=== PATIENT | male | born 1945 | race Caucasian/White ===

== ENCOUNTER 2019-07-17 10:29 | Outpatient (CLI) | payer MEDICARE, BC, SELFPAY ==
--- NOTE | ~2019-07-17 | XR_ITS ---
EXAMINATION:XR_[id number] DATE: 07/17/2019 10:50 INDICATION: Neck pain TECHNIQUE: AP, lateral, and odontoid views of the cervical spine are provided. COMPARISON: None FINDINGS: Alignment is normal. The odontoid is intact. No fracture is identified. The vertebral body heights are maintained. There is advanced loss of intervertebral disc space height at C5-6 and C6-7 a nd mild loss of intervertebral disc space height throughout the remainder of the cervical spine. Smal l degenerative osteophytes project from the anterior endplates of multiple vertebral bodies. There is moderate multilevel facet and uncovertebral joint osteoarthritis. Prevertebral soft tissues are norm al. IMPRESSION: 1. Moderate to severe cervical spondylosis without acute findings. Reviewed, dictated and finalized at location A. IOGNOMIST
== END 2019-07-17 10:30 | disposition home or self-care (01) ==
LOC: ANHIMG 10:34
PROVIDERS: PCP Emergency Medicine; Visit Provider Emergency Medicine
DX: M54.2 Cervicalgia (principal); M47.812 Spondylosis without myelopathy or radiculopathy, cervical region
CPT/HCPCS: 72040

== ENCOUNTER 2019-07-30 11:54 | Inpatient (IN) | payer MEDICARE, BC, SELFPAY ==
[2019-07-30] VITALS (15 sets, daily range): BP systolic 142–210; BP diastolic 60–109; PULSE 77–112; RESP 13–24; TEMP 36.4–37.3; O2SAT 96–99; BMI 29.2
--- NOTE | ~2019-07-30 | MR_ITS ---
EXAMINATION: MR brain/brain stem wo/w con EXAM DATE: 07/31/2019 12:53 INDICATION: Dizziness. TECHNIQUE: Magnetic resonance imaging (MRI) of the brain/brain stem obtained without contrast. Sagit kera T1, axial diffusion, gradient echo (T2*), T1, T2, FLAIR sequences obtained. Patient was then inj ected with 16 cc intravenous Multihance contrast. Axial and coronal postcontrast T1 weighted sequence s obtained. There is no prior study for comparison. FINDINGS: Study is limited due to patient motion. There are no areas of restricted diffusion to sugge st acute infarction. There is no acute hemorrhage seen on the T2*, a hemosiderin sensitive sequence. No intraparenchymal brain mass lesion. There is mild periventricular and subcortical T2/FLAIR signa l hyperintensity, nonspecific but probably related to small vessel ischemic disease (microangiopathy) . There is mild prominence of the sulci and ventricles related to cerebral atrophy. There are no extra-axial collections. Flow voids are seen in the cerebral arteries on the T2-weighted sequences c onsistent with their expected patency. Patient has had bilateral ocular lens surgery. Soft tissue i s unremarkable. IMPRESSION: 1. No acute intracranial findings. 2. Chronic age related findings. Reviewed, dictated and finalized at location B. TURBINE MECHANIC
--- NOTE | ~2019-07-30 | CT_ITS ---
EXAMINATION: CT brain wo con DATE: 07/30/2019 12:09 INDICATION: Cerebrovascular accident. Confusion. TECHNIQUE: Computed tomography (CT) of the head was performed without intravenous contrast. The mA wa s adjusted according to patient size. Iterative reconstruction technique was employed. The dose-lengt h product was 605.33 mGy-cm. COMPARISON: Head CT 01/18/2007 FINDINGS: There are scattered areas of low attenuation in the cerebral white matter, which is within normal limits for the patient's age. There is no intracranial hemorrhage, acute infarction, or abnorm al intracranial mass lesion. The ventricles are normal in size. The paranasal sinuses are clear. Ther e are likely changes of ocular lens replacement surgeries. The mastoid air cells are normal. IMPRESSION: 1. Normal aging brain. I called this result to Dr. Nicholas on 07/30/2019 at 12:12 PM. Reviewed, dictated and finalized at location A. ING EQUIPMENT REPAIRER SUPERVISOR IMPRESSION: 1. Normal aging brain. I called this result to Dr. Nicholas on 07/30/2019 at 12:1 2 PM.
--- NOTE | ~2019-07-30 | US_ITS ---
EXAMINATION: US carotid duplex BI DATE: 07/31/2019 13:25 INDICATION: Cerebral vascular accident. TECHNIQUE: Grayscale, color Doppler, and pulsed Doppler images of the cervical carotid arteries were obtained. The degree of vessel stenosis is placed in one of the following categories: normal, <50%, 5 0-69%, >=70% but less than near-occlusion, near-occlusion, or total occlusion. Note that percent sten osis relative to normal distal artery lumen diameter is indirectly measured from velocity measurement s as described by Gianfranco, et al. Radiology 2003; 229:340-346. COMPARISON: None. FINDINGS: RIGHT: The right common carotid artery (CCA) peak systolic velocity (PSV) is 136 cm/s. The right internal ca rotid artery (ICA) PSV is 98 cm/s. The right ICA end-diastolic velocity (EDV) is 23 cm/s. The right I CA/CCA PSV ratio is 0.7. Grayscale and color Doppler images yield an estimate of <50% diameter reduct ion from plaque in the ICA. There is antegrade flow in the right vertebral artery. LEFT: The left CCA PSV is 113 cm/s. The left ICA PSV is 109 cm/s. The left ICA EDV is 22 cm/s. The left ICA /CCA PSV ratio is 1.0. Grayscale and color Doppler images yield an estimate of <50% diameter reductio n from plaque in the ICA. There is antegrade flow in the left vertebral artery. IMPRESSION: 1. <50% stenosis in the right internal carotid artery. 2. <50% stenosis in the left internal carotid artery. Reviewed, dictated and finalized at location A. ULAR EQUIPMENT REPAIRER
--- NOTE | ~2019-07-30 | XR_ITS ---
EXAMINATION: XR chest 1V portable EXAM DATE: 07/30/2019 12:26 INDICATION: Headache, confusion. Possible stroke. TECHNIQUE: Portable AP frontal chest x-ray was obtained. Comparison is made to prior examination from 03/28/2016. FINDINGS: The lungs are clear. There are no pleural effusions. Cardiac silhouette is prominent but magnified on this AP technique. There is no pneumothorax suspected. The bones and soft tissues are unremarkable. IMPRESSION: No acute cardiopulmonary findings. Reviewed, dictated and finalized at location B. IO PRODUCER
--- NOTE | 2019-07-30 12:13 | ECG_ITS ---
Measurements Intervals [place] Rate: 79 P: 54 MA: 169 QRS: 62 QRSD: 94 T: 28 QT: 358 QTc: 411 Interpretive Statements SINUS RHYTHM NORMAL ECG Electronically Signed On 07-30-2019 13:00:52 CHEMISTRY LABORATORY TECHNICIAN by Miller Levy D.O.
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
[2019-07-30 12:23] LABS: Basophils Absolute Auto 0.1 K/mm3 (0.0-0.1); Basophils Percent Auto 1.1 % (0.2-1.2); Eosinophils Absolute Auto 0.2 K/mm3 (0-0.3); Hematocrit 43.4 % (42.0-52.0); Hemoglobin 13.8 g/dL (14.0-18.0); Immature Granulocyte Absolute 0.03 K/mm3 (0.00-0.031); Immature Granulocyte Percent A 0.5 % (0-0.5); Lymphocytes Absolute Auto 0.98 K/mm3 (0.9-3.2); Lymphocytes Percent Auto 16.1 % (18.3-44.2); Mean Corpuscular HGB Conc 31.8 g/dl (32-36); Mean Corpuscular Hemoglobin 29.2 pg (26-34); Mean Corpuscular Volume 91.9 fl (80-100); Mean Platelet Volume 10.2 fl (7.4-10.4); Monocytes Absolute Auto 0.3 K/mm3 (0.1-0.6); Monocytes Percent Auto 5.4 % (2.6-8.5); Neutrophils Absolute Auto 4.5 K/mm3 (1.3-6.7); Neutrophils Percent Auto 73.9 % (45.5-73.1); Platelet Count Result 209 k/mm3 (150-375); Red Blood Count 4.72 M/mm3 (4.6-6.20); Red Cell Distribution Width 12.9 % (11.5-14.5); White Blood Count 6.1 K/mm3 (4.5-10.0)
[2019-07-30 12:34] LABS: Blood Urea Nitrogen 12 mg/dL (9-20); Calcium 9.7 mg/dL (8.4-10.2); Carbon Dioxide 27 mmol/L (22-30); Chloride 104 mmol/L (98-107); Estimated Glomerular Filt Rate 54; Glucose 92 mg/dL (75-110); Partial Thromboplastin Time 33.2 SECONDS (22.3-36.8); Potassium 3.9 mmol/L (3.4-5.0); Prothrombin Time 12.4 Seconds (11.1-14.7); Sodium 141 mmol/L (137-145)
[2019-07-30] MEDS: hydrALAZINE HCL 20 MG/ML VIAL 10 MG IV PUSH (12:43)
[2019-07-30 12:46] LABS: Troponin I 0.014 ng/mL (0.000-0.034)
[2019-07-30] MEDS: hydrALAZINE HCL 20 MG/ML VIAL (13:37)
[2019-07-30] MEDS: MECLIZINE HCL 25 MG TABLET PO (13:54)
[2019-07-30 14:10] LABS: Add Urine Microscopic? YES; Appearance Urine Cloudy (Clear); Bacteria Urine Trace /hpf; Bilirubin Urine Negative (Negative); Color Urine Yellow (Yellow); Glucose Urine UA Negative (Negative); Ketones Urine Negative (Negative); Leukocyte Esterase Ur Negative LEU/UL (Negative); Nitrate Urine Negative (Negative); Protein Urine Negative (Negative); Specific Grav Ur 1.013 (1.001-1.035); Urobilinogen Urine Negative mg/dL (<2.0); WBC Urine 16-20 /hpf
[2019-07-30 14:21] LABS: Blood Urine Negative (Negative)
--- NOTE | 2019-07-30 15:47 | ECG_ITS ---
Measurements Intervals [place] Rate: 107 P: 55 MI: 150 QRS: 76 QRSD: 106 T: 37 QT: 330 QTc: 440 Interpretive Statements SINUS TACHYCARDIA BORDERLINE ST-T WAVE ABNORMALITY- ANTEROLAT/INF LEADS BASELINE ARTIFACT- I, II, III, AVR, AVL, AVF ABNORMAL ECG Electronically Signed On 07-30-2019 16:05:06 PATTERN LEASE INSPECTOR by Miller Levy D.O.
--- NOTE | 2019-07-30 16:42 | ADMGEN ---
This patient, Jair Hardin, was admitted to IMU Room 231-01. Patient/family oriented to hospital policies and general routines including ID bracelet, bed and alarms, visiting hours, pain management, procedures, bathroom and other care routines, personal items, smoking policy, room service/diet, and visiting hours. Valuables list has been completed. Information on how to activate the Rapid Response Team has been discussed. Patient/Family are encouraged to report perceived risks to care and to ask questions if they do not understand what they are told or what they should do.
[2019-07-30] MEDS: ACETAMINOPHEN 325 MG TABLET 650 MG PO (20:11)
[2019-07-31] VITALS (14 sets, daily range): BP systolic 117–167; BP diastolic 59–90; PULSE 72–111; RESP 18–20; TEMP 36.7–37.6; O2SAT 96–98
--- NOTE | 2019-07-31 | ECHO_ITS ---
Patient Info Name: Jair Hardin Age: 73 years : 1945 Gender: Male Ht: 66 in Wt: 180 lbs BSA: 1.97 m2 HR: 76 bpm BP: 151 / 59 mmHg Technical Quality: Fair Exam Date: 07/31/2019 2:18 PM Exam Location: [facility] Patient Status: Inpatient Admit Date: 07/30/2019 Staff Ordering Physician: Mary Sherman NP Tubular Products Fabricator: Sue Moore RDCS Attending Provider: Shelbie Nguyen PA-C Exam Type: CA echo dop bubble study w con Study Info Indications - stroke like symptoms Complete two-dimensional, color flow and Doppler transthoracic echocardiogram is performed with contrast to opacify the left ventrical and to improve the deliniation of the left ventrical endocarial boarders. Complete two-dimensional, color flow and Doppler transthoracic echocardiogram is performed with agitated saline. Contrast/Agitated Saline Contrast/Ag. Saline: Definity Amount: 1.00 ml Administered By: Mercedes Galan RN Existing IV Access: Yes IV Access Condition: patent with no signs of infiltration Summary 1. Left ventricular chamber dimension is normal. 2. Definity contrast administered improved wall motion interpretation. 3. Left ventricular systolic function is normal, estimated at 60-65%. 4. The left ventricular diastolic function is grade I diastolic dysfunction. 5. E/e' 16 is elevated. 6. There is mild aortic valve sclerosis. 7. The mitral valve has moderately thickened leaflets. 8. Mild mitral annular calcification. 9. There is trace tricuspid valve regurgitation. 10. No pulmonary hypertension, estimated pulmonary arterial systolic pressure is 32 mmHg. Left Ventricle E/e' 16 is elevated. Definity contrast administered improved wall motion interpretation. Left ventricular chamber dimension is normal. Left ventricular systolic function is normal, estimated at 60-65%. The left ventricular diastolic function is grade I diastolic dysfunction. Right Ventricle Right ventricular chamber dimension is normal. Right ventricular systolic function is normal. Left Atria Left atrial chamber dimension is mildly enlarged. Right Atria Right atrial chamber dimension is normal. Atrial Septum Agitated saline administered which opacified with sided chambers with and without valsalva maneuver with no shunt noted. Intact interatrial septum visualized by color flow and agitated saline imaging. Aortic Valve The aortic valve is trileaflet. There is mild aortic valve sclerosis. There is no aortic valve stenosis. There is no aortic valve regurgitation. Pulmonic Valve There is no pulmonic regurgitation. Mitral Valve The mitral valve has moderately thickened leaflets. Mild mitral annular calcification. There is no mitral valve stenosis. There is no mitral valve regurgitation. Tricuspid Valve There is trace tricuspid valve regurgitation. No pulmonary hypertension, estimated pulmonary arterial systolic pressure is 32 mmHg. Pericardium/Pleural There is no pericardial effusion. Inferior Vena Cava Normal inferior vena cava with >50% collapse upon inspiration consistent with normal right atrial pressure, 5 mmHg. Aorta The aortic root size at the sinus of Valsalva is normal. Left Ventricular Outflow Tract Name Value Normal
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
[2019-07-31 05:00] LABS: Basophils Absolute Auto 0.1 K/mm3 (0.0-0.1); Basophils Percent Auto 0.9 % (0.2-1.2); Eosinophils Absolute Auto 0.2 K/mm3 (0-0.3); Eosinophils Percent Auto 2.7 % (0-4.4); Hematocrit 39.9 % (42.0-52.0); Hemoglobin 12.9 g/dL (14.0-18.0); Immature Granulocyte Absolute 0.03 K/mm3 (0.00-0.031); Immature Granulocyte Percent A 0.5 % (0-0.5); Lymphocytes Absolute Auto 1.03 K/mm3 (0.9-3.2); Lymphocytes Percent Auto 16.2 % (18.3-44.2); Mean Corpuscular HGB Conc 32.3 g/dl (32-36); Mean Corpuscular Hemoglobin 29.5 pg (26-34); Mean Corpuscular Volume 91.3 fl (80-100); Mean Platelet Volume 10.2 fl (7.4-10.4); Monocytes Absolute Auto 0.5 K/mm3 (0.1-0.6); Monocytes Percent Auto 7.6 % (2.6-8.5); Neutrophils Absolute Auto 4.6 K/mm3 (1.3-6.7); Neutrophils Percent Auto 72.1 % (45.5-73.1); Platelet Count Result 200 k/mm3 (150-375); Red Blood Count 4.37 M/mm3 (4.6-6.20); Red Cell Distribution Width 13.1 % (11.5-14.5); White Blood Count 6.4 K/mm3 (4.5-10.0)
[2019-07-31 05:14] LABS: Alanine Aminotransferase 13 U/L (4-50); Alkaline Phosphatase 50 U/L (38-126); Aspartate Amino Transferase 25 U/L (17-59); Bilirubin,Total 0.5 mg/dL (0.2-1.3); Blood Urea Nitrogen 14 mg/dL (9-20); Calcium 9.4 mg/dL (8.4-10.2); Carbon Dioxide 25 mmol/L (22-30); Chloride 104 mmol/L (98-107); Estimated CRCL calculation 39 ml/min; Estimated Glomerular Filt Rate 46; Glucose 89 mg/dL (75-110); Magnesium 1.6 mg/dL (1.6-2.3); Potassium 3.8 mmol/L (3.4-5.0); Sodium 139 mmol/L (137-145)
[2019-07-31] MEDS: CHOLECALCIFEROL 1,000 UNIT TABLET 2000 UNITS PO (08:08)
[2019-07-31] MEDS: MESALAMINE 250 MG CAP CR 2000 MG PO ×2 (08:08→16:31)
[2019-07-31] MEDS: ACIDOPHILUS/BULGARICUS CHEWABLE TABLET 1 TABLET PO (08:09)
[2019-07-31] MEDS: FENOFIBRATE 160 MG TABLET PO (08:09)
[2019-07-31] MEDS: VITAMIN B CMPLX/VIT C/FOLIC AC 1 CAPSULE 1 CAP PO (08:09)
[2019-07-31] MEDS: PANTOPRAZOLE 40 MG TABLET PO (08:09)
[2019-07-31] MEDS: MULTIVITAMINS THERAPEUTIC TAB (*BKC) 1 TABLET PO (08:10)
[2019-07-31] MEDS: ASPIRIN 81 MG ENTERIC TABLET PO (08:10)
[2019-07-31] MEDS: lisinopriL 10 MG TABLET PO ×2 (08:10→11:10)
[2019-07-31 08:20] LABS: Free T4 Free Thyroxine Reflex 0.82 ng/dL (0.78-2.19)
[2019-07-31 09:59] LABS: Total Triiodothyronine (T3) 1.52 NG/ML (0.97-1.69)
[2019-07-31] MEDS: MAGNESIUM SULF 2 GM/WATER 50ML 2 GM/50 ML BAG IVPB (11:05)
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
[2019-07-31] MEDS: PERFLUTREN LIPID MICROSPHERES 1.5 ML VIAL DILUTED TO 10 ML TOTAL VOLUME IV PUSH (14:49)
[2019-07-31] MEDS: CLOPIDOGREL BISULFATE 75 MG TABLET PO (16:30)
[2019-07-31] MEDS: ACETAMINOPHEN 325 MG TABLET 650 MG PO (16:38)
[2019-07-31] MEDS: LOPERAMIDE HCL 2 MG CAPSULE PO (18:07)
[2019-07-31] MEDS: TAMSULOSIN HCL 0.4 MG CAPSULE 0.8 MG PO (20:29)
[2019-08-01] VITALS (8 sets, daily range): BP systolic 119–122; BP diastolic 60–70; PULSE 76–89; RESP 18–20; TEMP 36.6–36.7; O2SAT 93–99
[2019-08-01] MEDS: ACETAMINOPHEN 325 MG TABLET 650 MG PO (02:19)
[2019-08-01 05:29] LABS: Blood Urea Nitrogen 22 mg/dL (9-20); Carbon Dioxide 23 mmol/L (22-30); Chloride 102 mmol/L (98-107); Estimated CRCL calculation 39 ml/min; Estimated Glomerular Filt Rate 46; Glucose 102 mg/dL (75-110); Potassium 3.6 mmol/L (3.4-5.0); Sodium 137 mmol/L (137-145)
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
[2019-08-01] MEDS: CHOLECALCIFEROL 1,000 UNIT TABLET 2000 UNITS PO (09:36)
[2019-08-01] MEDS: ASPIRIN 81 MG ENTERIC TABLET PO (09:36)
[2019-08-01] MEDS: ACIDOPHILUS/BULGARICUS CHEWABLE TABLET 1 TABLET PO (09:36)
[2019-08-01] MEDS: lisinopriL 20 MG TABLET PO (09:37)
[2019-08-01] MEDS: VITAMIN B CMPLX/VIT C/FOLIC AC 1 CAPSULE 1 CAP PO (09:37)
[2019-08-01] MEDS: MULTIVITAMINS THERAPEUTIC TAB (*BKC) 1 TABLET PO (09:37)
[2019-08-01] MEDS: FENOFIBRATE 160 MG TABLET PO (09:37)
[2019-08-01] MEDS: MESALAMINE 250 MG CAP CR 2000 MG PO (09:37)
[2019-08-01] MEDS: CLOPIDOGREL BISULFATE 75 MG TABLET PO (09:37)
[2019-08-01] MEDS: PANTOPRAZOLE 40 MG TABLET PO (09:37)
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
== END 2019-08-01 15:07 | disposition home or self-care (01) | DRG 69 ==
LOC: ANHED 14:27 → ANHIMU 15:50
PROVIDERS: Nurse Practitioner; Physician Assistant; Admitting Provider Internal Medicine; Emergency Provider Emergency Medicine; PCP Emergency Medicine; Visit Provider Internal Medicine
DX: G45.9 Transient cerebral ischemic attack, unspecified (principal); K50.90 Crohn's disease, unspecified, without complications; I10 Essential (primary) hypertension; E78.5 Hyperlipidemia, unspecified; N40.0 Benign prostatic hyperplasia without lower urinary tract symptoms; M54.2 Cervicalgia; K21.9 Gastro-esophageal reflux disease without esophagitis; M19.90 Unspecified osteoarthritis, unspecified site; F41.9 Anxiety disorder, unspecified; Z96.652 Presence of left artificial knee joint; Z90.49 Acquired absence of other specified parts of digestive tract; Z98.42 Cataract extraction status, left eye; Z98.41 Cataract extraction status, right eye; Z87.891 Personal history of nicotine dependence
CPT/HCPCS: 36415; 70450; 70553; 71045; 80048; 80053; 81001; 83735; 84439; 84443; 84480; 84484; 85025; 85610; 85730; 87086; 93005; 93880; 96374; 96375; 96376; 99285; A9270; A9577; C8929; G0378; J0360; J3475; Q9957

== ENCOUNTER 2020-03-30 09:12 | Outpatient (CLI) | payer MEDICARE, BC, SELFPAY ==
--- NOTE | ~2020-03-30 | US_ITS ---
EXAMINATION: US renal BI DATE: 03/30/2020 09:41 INDICATION: Abnormal results of kidney function tests TECHNIQUE: Multiple grayscale and Doppler ultrasound images of the kidneys were obtained. COMPARISON: 09/30/2014 FINDINGS: The right kidney measures 9.1 x 5.4 x 5.8 cm. The left kidney measures 10.4 x 5.5 x 4.8 cm. The kidneys demonstrate normal parenchymal echogenicity. There is no hydronephrosis. There is a 2.7 cm mobile, echogenic area with posterior acoustic shadowing in the bladder. No bladder wall thickenin g is identified. IMPRESSION: 1. 2.7 cm bladder stone. Reviewed, dictated and finalized at location A. IMPRESSION: 1. 2.7 cm bladder stone.
== END 2020-03-30 09:13 | disposition home or self-care (01) ==
LOC: ANHIMG 09:18
PROVIDERS: PCP Emergency Medicine; Visit Provider Internal Medicine Nephrology
DX: R94.4 Abnormal results of kidney function studies (principal); N21.0 Calculus in bladder
CPT/HCPCS: 76775

== ENCOUNTER 2020-05-20 14:43 | Emergency (ER) | payer MEDICARE, BC, SELFPAY ==
--- NOTE | ~2020-05-20 | XR_ITS ---
EXAMINATION: XR chest 2V 05/20/2020 15:40 INDICATION: Weakness. Dizziness. PROCEDURE: AP and lateral views of the chest COMPARISON: Comparison to multiple prior studies sequentially, with oldest reviewed study dated 08/2012. FINDINGS: The lungs are clear. The cardiomediastinal silhouette is within normal limits. There are no pleural effusions. There is no pneumothorax suspected. IMPRESSION: 1: NO ACUTE CARDIOPULMONARY DISEASE. Reviewed, dictated and finalized at location B. RONMENTAL MONITORING TECHNICIAN
--- NOTE | ~2020-05-20 | CT_ITS ---
EXAMINATION: CT brain wo con DATE: 05/20/2020 16:05 INDICATION: Headache. Dizziness. TECHNIQUE: Computed tomography (CT) of the head was performed without intravenous contrast. The mA wa s adjusted according to patient size. Iterative reconstruction technique was employed. The dose-lengt h product was 605.33 mGy-cm. COMPARISON: Head CT 07/30/2019, brain MRI 07/31/2019 FINDINGS: There are scattered areas of low attenuation in the cerebral white matter, which is within normal limits for the patient's age. There is no intracranial hemorrhage, acute infarction, or abnorm al intracranial mass lesion. The ventricles are normal in size. There are likely changes of ocular le ns replacement surgeries. There is mild mucosal thickening in the ethmoid sinuses. The mastoid air ce lls are normal. IMPRESSION: 1. Normal aging brain. Reviewed, dictated and finalized at location A. CAL HACKER IMPRESSION: 1. Normal aging brain.
--- NOTE | 2020-05-20 15:00 | ECG_ITS ---
Measurements Intervals [place] Rate: 67 P: 6 SC: 175 QRS: -3 QRSD: 99 T: 11 QT: 392 QTc: 415 Interpretive Statements SINUS RHYTHM BASELINE ARTIFACT- I, II, III, AVR, AVL, AVF, V1 BORDERLINE ECG Electronically Signed On 05-20-2020 15:12:47 JUNIOR ARCHITECT by Miller Levy D.O.
[2020-05-20 15:15] VITALS: BP 177/96; PULSE 99; RESP 17; TEMP 36.2; O2SAT 100
[2020-05-20 15:25] LABS: Basophils Percent Auto 0.8 % (0.2-1.2); Eosinophils Absolute Auto 0.1 K/mm3 (0-0.3); Eosinophils Percent Auto 2.1 % (0-4.4); Hemoglobin 13.4 g/dL (14.0-18.0); Immature Granulocyte Absolute 0.02 K/mm3 (0.00-0.031); Immature Granulocyte Percent A 0.4 % (0-0.5); Lymphocytes Absolute Auto 0.81 K/mm3 (0.9-3.2); Lymphocytes Percent Auto 15.6 % (18.3-44.2); Mean Corpuscular HGB Conc 32.7 g/dl (32-36); Mean Corpuscular Volume 91.9 fl (80-100); Mean Platelet Volume 9.8 fl (7.4-10.4); Monocytes Absolute Auto 0.3 K/mm3 (0.1-0.6); Monocytes Percent Auto 6.2 % (2.6-8.5); Neutrophils Absolute Auto 3.9 K/mm3 (1.3-6.7); Neutrophils Percent Auto 74.9 % (45.5-73.1); Platelet Count Result 196 k/mm3 (150-375); Red Blood Count 4.46 M/mm3 (4.6-6.20); Red Cell Distribution Width 13.1 % (11.5-14.5); White Blood Count 5.2 K/mm3 (4.5-10.0)
[2020-05-20 15:36] LABS: Potassium 3.8 mmol/L (3.4-5.0)
[2020-05-20 15:48] LABS: Alanine Aminotransferase 14 U/L (4-50); Alkaline Phosphatase 57 U/L (38-126); Anion Gap 2 mmol/L (8-16); Aspartate Amino Transferase 29 U/L (17-59); Bilirubin,Total 0.4 mg/dL (0.2-1.3); Blood Urea Nitrogen 14 mg/dL (9-20); Calcium 9.7 mg/dL (8.4-10.2); Carbon Dioxide 34 mmol/L (22-30); Chloride 106 mmol/L (98-107); Estimated CRCL calculation 40 ml/min; Estimated Glomerular Filt Rate 54; Glucose 111 mg/dL (75-110); Sodium 142 mmol/L (137-145)
--- NOTE | 2020-05-20 15:58 | PC.NURSE ---
Pt to CT at this time
--- NOTE | 2020-05-20 16:04 | ED.HA ---
HPI - Headache General Chief Complaint: Headache Stated Complaint: High Blood Pressure, Losing Balance For a Few Days Time Seen by Provider: 05/20/20 15:32 Source: patient and family Mode of arrival: ambulatory Limitations: no limitations History of Present Illness HPI Narrative: This is a 74-year-old male that presents to the emergency department for dizziness and headache. Reports this has been ongoing for the last month after he was started on budesonide. Reports today his noted his blood pressure was elevated, which prompted him to be seen. Denies any current dizziness. Does report a current mild headache. Denies fever, chest pain, shortness of breath, vision changes, vomiting, numbness or weakness. Related Data Home Medications Medication Instructions Recorded Confirmed Lactobacillus acidophilus 10 5 cell PO DAILY cap 07/16/19 07/30/19 billion cell capsule cholecalciferol (vitamin D3) 50 2,000 unit PO DAILY 07/16/19 07/30/19 mcg (2,000 unit) tablet cholestyramine (with sugar) 4 gram 8 gm PO DAILY each 07/16/19 07/30/19 powder for susp in a packet glucosamine-chondroitin 500 mg-400 2 tablet PO DAILY 07/16/19 07/30/19 mg tablet lutein 20 mg tablet 20 mg PO BID 07/16/19 07/30/19 multivitamin 1 tablet PO DAILY 07/16/19 07/30/19 vitamin B complex-folic acid 0.4 1 tablet PO DAILY 07/16/19 07/30/19 mg tablet Pentasa 2,000 mg PO BID 07/30/19 07/30/19 omeprazole 20 mg PO DAILY 07/30/19 07/30/19 budesonide 3 mg 3 mg PO DAILY 05/12/20 capsule,delayed,extended release Allergies Allergy/AdvReac Type Severity Reaction Status Date / Time NSAIDS (Non-Steroidal Allergy Unknown Unknown Verified 05/20/20 15:20 Anti-Inflamma Tetanus Vaccines and Toxoid Allergy Unknown Unknown Verified 05/20/20 15:20 tetanus toxoid, adsorbed AdvReac Unknown FLU LIKE Verified 05/20/20 15:20 SYMPTOMS Review of Systems Review of Systems: Narrative: CONSTITUTIONAL: Denies fever CARDIOVASCULAR: Denies chest pain RESPIRATORY: Denies dyspnea. GASTROINTESTINAL: Denies vomiting NEUROLOGIC: Reports headache. Denies numbness, or weakness. All systems reviewed & are unremarkable except as noted in HPI and below PMFSH Past Medical History Medical History Anxiety Arthritis BPH (benign prostatic hyperplasia) Colitis Crohn disease GERD (gastroesophageal reflux disease) Heel spur HLD (hyperlipidemia) HTN (hypertension) Neck pain Varicose veins of both lower extremities with pain Surgical History Surgical History H/O carpal tunnel repair Left thumb H/O local excision of skin lesion History of arthroscopic knee surgery Left total knee History of cataract surgery History of cholecystectomy History of cystoscopy History of hemicolectomy History of inguinal hernia repair History of lithotripsy X2 History of rotator cuff surgery Bilateral Family History Family History Sibling Heart disease COPD (chronic obstructive pulmonary disease) Mother Breast cancer Sibling Diabetes mellitus Family history of cardiovascular disease Family history of coronary artery disease Mother Hypertension Patient's mother is Father Patient's father is Other Family history of malignant neoplasm of male breast Social History Social History Social History: The patient stated that he would want to be resuscitated but he would not want to live on a machine like a vegetable. 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 He has 2 children. He is retired from [employer]. He is to smoke and quit in the 80s. Smoking packs per day: 1.5 Smoking cigarettes per day: 30.0 Years smoked: 23 Smoking pack-years: 34.50 Smoking status: Former smoker
[2020-05-20 16:16] VITALS: BP 168/69; PULSE 66; RESP 14; O2SAT 100
[2020-05-20 17:40] LABS: Add Urine Microscopic? YES; Appearance Urine Clear (Clear); Bilirubin Urine Negative (Negative); Blood Urine Negative (Negative); Color Urine Yellow (Yellow); Glucose Urine UA Negative (Negative); Ketones Urine Negative (Negative); Leukocyte Esterase Ur Negative LEU/UL (Negative); Mucus Urine Rare /lpf; Nitrate Urine Negative (Negative); Protein Urine 1+ mg/dL (Negative); Urobilinogen Urine Negative mg/dL (<2.0); WBC Urine 0-3 /hpf
[2020-05-20 17:55] VITALS: BP 152/90; PULSE 64; RESP 14; O2SAT 98
== END 2020-05-20 18:19 | disposition home or self-care (01) ==
PROVIDERS: Emergency Medicine; Emergency Provider Emergency Medicine; PCP Emergency Medicine
DX: I10 Essential (primary) hypertension (principal); R51.9 Headache, unspecified; Z87.891 Personal history of nicotine dependence; F41.9 Anxiety disorder, unspecified; M19.90 Unspecified osteoarthritis, unspecified site; N40.0 Benign prostatic hyperplasia without lower urinary tract symptoms; K50.90 Crohn's disease, unspecified, without complications; K21.9 Gastro-esophageal reflux disease without esophagitis; E78.5 Hyperlipidemia, unspecified
CPT/HCPCS: 36415; 70450; 71046; 80053; 81001; 85025; 93005; 96374; 99284; J0131

== ENCOUNTER 2020-05-28 11:19 | Emergency (ER) | payer MEDICARE, BC, SELFPAY ==
[2020-05-28] VITALS (13 sets, daily range): BP systolic 129–190; BP diastolic 65–107; PULSE 67–91; RESP 14–25; TEMP 36.5; O2SAT 93–100
--- NOTE | ~2020-05-28 | CT_ITS ---
EXAMINATION: CTA brain carotid DATE: 05/28/2020 13:44 INDICATION: Headache. TECHNIQUE: Computed tomographic angiography (CTA) of the head was performed without and with 100 mL O mnipaque-350 intravenous contrast. CTA of the neck was performed with intravenous contrast. Automated exposure control and iterative reconstruction technique were employed. The dose-length product was 1 621.60 mGy-cm. Maximum intensity projection and volume rendered 3D-reconstructions were created by irving parker technologist on a separate workstation. COMPARISON: Head CT 05/20/2020 FINDINGS: HEAD CTA: There is no intracranial hemorrhage, acute infarction, or abnormal intracranial mass lesion . There are scattered areas of low attenuation in the cerebral white matter, which is within normal l imits for the patient's age. The ventricles are normal in size. There are likely changes of ocular l ens replacement surgeries. The paranasal sinuses are clear. The mastoid air cells are normal. Left ve rtebral artery is dominant. There is no significant stenosis of basilar artery or the posterior cereb ral arteries. There is no significant stenosis of the intracranial internal carotid arteries or anter ior or middle cerebral arteries. Anterior communicating artery is normal. The posterior communicating arteries are normal. There is no aneurysm. NECK CTA: There is a 7 mm nodule in right lung upper lobe. Calcified pulmonary nodules and calcified hilar lymph nodes are consistent with old granulomatous disease. There are nodules in the thyroid hilario suring up to 2.9 cm on the left. There are no pathologically enlarged lymph nodes. There is no signif icant stenosis of the vertebral arteries. There is plaque in the proximal internal carotid arteries. There is 0% stenosis of the proximal right internal carotid artery relative to normal distal artery l umen diameter (NASCET criteria). There is 14% stenosis of the proximal left internal carotid artery r elative to normal distal artery lumen diameter. There is severe cervical spondylosis. IMPRESSION: 1. Normal aging brain. 2. No aneurysm or significant intracranial arterial stenosis. 3. 0% stenosis of the proximal right internal carotid artery relative to normal distal artery lumen diameter (NASCET criteria). 4. 14% stenosis of the proximal left internal carotid artery relative to normal distal artery lumen diameter. 5. 7 mm pulmonary nodule, probably benign. Noncontrast low-dose chest CT is recommended in 6 months. Reviewed, dictated and finalized at location B. OR PIER LABORER IMPRESSION: 1. Normal aging brain. 2. No aneurysm or significant intracranial arterial stenosis. 3. 0% stenosis of the proximal right internal carotid artery relative to emma l distal artery lumen diameter (NASCET criteria). 4. 14% stenosis of the proximal left internal carotid artery relative to emma l distal artery lumen diameter. 5. 7 mm pulmonary nodule, probably benign. Noncontrast low-dose chest CT is rec ommended in 6 months.
--- NOTE | 2020-05-28 12:06 | ED.HA ---
HPI - Headache General Chief Complaint: Headache Stated Complaint: headache Time Seen by Provider: 05/28/20 12:06 Source: patient and family Mode of arrival: ambulatory Limitations: no limitations History of Present Illness HPI Narrative: Patient is a 74 yo male with a PMH of TIA and HTN, who awakened this morning with a severe headache. Pt also with dizziness over the pat 6 months which is intermittent in nature, and associated with mild headaches. Dizziness is described as uneasy feeling. He denies a spinning sensation. He denies current dizziness. He denies vision changes. He denies any tinnitus. Pain is located in back of head, needle like sensation. Rated as severe initially. He did take two Tylenol initially, but it did not improve his pain. No history of migraine headaches. No runny nose or fever. Pt denies thunderclap sensation. He is walking without difficulty. Per patient, he is taking his new BP medicine of amlodipine at night and seems to feel improved at night. He denies any chest pain, neck pain, or fever. Related Data Home Medications Medication Instructions Recorded Confirmed Lactobacillus acidophilus 10 5 cell PO DAILY cap 07/16/19 07/30/19 billion cell capsule cholecalciferol (vitamin D3) 50 2,000 unit PO DAILY 07/16/19 07/30/19 mcg (2,000 unit) tablet cholestyramine (with sugar) 4 gram 8 gm PO DAILY each 07/16/19 07/30/19 powder for susp in a packet glucosamine-chondroitin 500 mg-400 2 tablet PO DAILY 07/16/19 07/30/19 mg tablet lutein 20 mg tablet 20 mg PO BID 07/16/19 07/30/19 multivitamin 1 tablet PO DAILY 07/16/19 07/30/19 vitamin B complex-folic acid 0.4 1 tablet PO DAILY 07/16/19 07/30/19 mg tablet Pentasa 2,000 mg PO BID 07/30/19 07/30/19 omeprazole 20 mg PO DAILY 07/30/19 07/30/19 budesonide 3 mg 3 mg PO DAILY 05/12/20 capsule,delayed,extended release lisinopril 20 mg tablet 20 mg PO BID tablet 05/22/20 Allergies Allergy/AdvReac Type Severity Reaction Status Date / Time NSAIDS (Non-Steroidal Allergy Unknown Unknown Verified 05/28/20 11:43 Anti-Inflamma Tetanus Vaccines and Toxoid Allergy Unknown Unknown Verified 05/28/20 11:43 tetanus toxoid, adsorbed AdvReac Unknown FLU LIKE Verified 05/28/20 11:43 SYMPTOMS Review of Systems Review of Systems: Narrative: CONSTITUTIONAL: Denies fever, chills, or sweats. ENT: Denies rhinorrhea, congestion, sore throat, or otalgia. CARDIOVASCULAR: Denies chest pain RESPIRATORY: Denies cough or dyspnea. GASTROINTESTINAL: Denies abdominal pain, denies nausea or vomiting GENITOURINARY: Denies dysuria or hematuria. SKIN: Denies rash or itching. MUSCULOSKELETAL: Denies back pain, joint pain, or myalgia. NEUROLOGIC: Reports headache denies numbness PMFSH Past Medical History Medical History Anxiety Arthritis BPH (benign prostatic hyperplasia) Colitis Crohn disease GERD (gastroesophageal reflux disease) Heel spur HLD (hyperlipidemia) HTN (hypertension) Neck pain Varicose veins of both lower extremities with pain Surgical History Surgical History H/O carpal tunnel repair Left thumb H/O local excision of skin lesion History of arthroscopic knee surgery Left total knee History of cataract surgery History of cholecystectomy History of cystoscopy History of hemicolectomy History of inguinal hernia repair History of lithotripsy X2 History of rotator cuff surgery Bilateral Family History Family History Sibling Heart disease COPD (chronic obstructive pulmonary disease) Mother Breast cancer Sibling Diabetes mellitus Family history of cardiovascular disease Family history of coronary artery disease Mother Hypertension Patient's mother is Father Patient's father is Other Family history of malignant neoplas
--- NOTE | 2020-05-28 12:52 | ECG_ITS ---
Measurements Intervals [place] Rate: 91 P: 51 MI: 169 QRS: 70 QRSD: 111 T: 25 QT: 339 QTc: 418 Interpretive Statements SINUS RHYTHM POSSIBLE LEFT ATRIAL ENLARGEMENT INTRAVENTRICULAR CONDUCTION DELAY BORDERLINE ST ABNORMALITY- ANTEROLATERAL LEADS BASELINE ARTIFACT- I, II, III, AVR, AVL, AVF, V1-V2 BORDERLINE ECG Electronically Signed On 05-28-2020 13:48:26 CROP ADJUSTER by Miller Levy D.O.
[2020-05-28] MEDS: SODIUM CHLORIDE 0.9% IV 500 ML 999 ML IV CONT (13:13)
[2020-05-28] MEDS: ONDANSETRON INJ 4 MG/2 ML VIAL IV PUSH (13:13)
[2020-05-28] MEDS: MORPHINE SULFATE (*CRX) 2 MG/ML INJ IV PUSH (13:14)
[2020-05-28] MEDS: METOCLOPRAMIDE HCL INJ 10 MG/2 ML VIAL IV PUSH (13:14)
[2020-05-28 13:22] LABS: Basophils Absolute Auto 0.1 K/mm3 (0.0-0.1); Basophils Percent Auto 0.7 % (0.2-1.2); Eosinophils Absolute Auto 0.1 K/mm3 (0-0.3); Eosinophils Percent Auto 1.5 % (0-4.4); Hematocrit 43.3 % (42.0-52.0); Hemoglobin 14.1 g/dL (14.0-18.0); Immature Granulocyte Absolute 0.03 K/mm3 (0.00-0.031); Immature Granulocyte Percent A 0.3 % (0-0.5); Lymphocytes Absolute Auto 0.78 K/mm3 (0.9-3.2); Lymphocytes Percent Auto 8.5 % (18.3-44.2); Mean Corpuscular HGB Conc 32.6 g/dl (32-36); Mean Corpuscular Volume 92.1 fl (80-100); Monocytes Absolute Auto 0.3 K/mm3 (0.1-0.6); Monocytes Percent Auto 3.3 % (2.6-8.5); Neutrophils Absolute Auto 7.9 K/mm3 (1.3-6.7); Neutrophils Percent Auto 85.7 % (45.5-73.1); Platelet Count Result 219 k/mm3 (150-375); Red Cell Distribution Width 12.8 % (11.5-14.5); White Blood Count 9.2 K/mm3 (4.5-10.0)
[2020-05-28 13:31] LABS: Estimated CRCL calculation 42 ml/min; Estimated Glomerular Filt Rate 49
[2020-05-28 13:32] LABS: Prothrombin Time 13.3 Seconds (11.1-14.7)
[2020-05-28 13:33] LABS: Partial Thromboplastin Time 28.8 SECONDS (22.3-36.8)
[2020-05-28 13:36] LABS: Anion Gap 5 mmol/L (8-16); Blood Urea Nitrogen 13 mg/dL (9-20); Calcium 9.3 mg/dL (8.4-10.2); Carbon Dioxide 28 mmol/L (22-30); Chloride 106 mmol/L (98-107); Estimated CRCL calculation 45 ml/min; Estimated Glomerular Filt Rate 54; Glucose 97 mg/dL (75-110); Potassium 4.3 mmol/L (3.4-5.0); Sodium 139 mmol/L (137-145)
[2020-05-28] MEDS: MAGNESIUM SULF 2 GM/WATER 50ML 2 GM/50 ML BAG IVPB (13:49)
[2020-05-28 13:50] LABS: Troponin I < 0.012 ng/mL (0.000-0.034)
== END 2020-05-28 15:16 | disposition home or self-care (01) ==
PROVIDERS: Emergency Provider Emergency Medicine; PCP Emergency Medicine
DX: G44.89 Other headache syndrome (principal); I10 Essential (primary) hypertension; M19.90 Unspecified osteoarthritis, unspecified site; Z86.73 Personal history of transient ischemic attack (TIA), and cerebral infarction without residual deficits; N40.0 Benign prostatic hyperplasia without lower urinary tract symptoms; K50.90 Crohn's disease, unspecified, without complications; E78.5 Hyperlipidemia, unspecified; Z98.49 Cataract extraction status, unspecified eye; Z87.891 Personal history of nicotine dependence; I45.9 Conduction disorder, unspecified; R94.31 Abnormal electrocardiogram [ECG] [EKG]
CPT/HCPCS: 36415; 70496; 70498; 80048; 84484; 85025; 85610; 85730; 93005; 96365; 96375; 99284; J2270; J2405; J2765; J3475; J7040; Q9967

== ENCOUNTER 2020-06-16 08:26 | Outpatient (CLI) | payer MEDICARE, BC, SELFPAY ==
--- NOTE | ~2020-06-16 | XR_ITS ---
XR small bowel follow through DATE: 06/16/2020 10:14 INDICATION: Diarrhea. History of ileal resection. TECHNIQUE: Serial images of the abdomen after oral administration of contrast material 0.2 minutes fluoroscopy time DAP: 32.5 9 images COMPARISON: None FINDINGS: There is normal transit of contrast material through the small bowel, without stricture, ab normal dilatation, obstruction, mucosal fold thickening, intraluminal mass lesion or diverticulum. IMPRESSION: Unremarkable examination Suggestion of calcified bladder stones and prostate calcifications. Reviewed, dictated and finalized at Location A. Reviewed, dictated and finalized at location A. NT MANAGER LARGE LAW
== END 2020-06-16 08:27 | disposition home or self-care (01) ==
PROVIDERS: PCP Emergency Medicine; Visit Provider Internal Medicine Gastroenterology
DX: R19.7 Diarrhea, unspecified (principal); R93.89 Abnormal findings on diagnostic imaging of other specified body structures
CPT/HCPCS: 74250

== ENCOUNTER 2022-03-04 15:04 | Outpatient (CLI) | payer MEDICARE, BC, SELFPAY ==
--- NOTE | ~2022-03-04 | XR_ITS ---
EXAMINATION: XR abdomen/kub 1V INDICATION: Crohn's disease, diarrhea, abdominal pain TECHNIQUE: Supine views of the abdomen were obtained on 2 radiographs. COMPARISON: 06/16/2020 FINDINGS: Right pelvic calcifications are noted. There are no dilated loops of bowel. The visualized lung bases are clear. Surgical clips in the right upper quadrant are likely from prior cholecystectom y. There is a bone island in the right ilium. Mild osteoarthritis is noted in the hips. There is a 5 mm stone in the right kidney lower pole IMPRESSION: 1. No radiographic correlate for the patient's symptoms. Reviewed, dictated and finalized at location B.
[2022-03-04 12:46] LABS: Hemoglobin 14.1 g/dL (14.0-18.0); Mean Corpuscular HGB Conc 32.8 g/dl (32-36); Mean Corpuscular Hemoglobin 30.1 pg (26-34); Mean Corpuscular Volume 91.9 fl (80-100); Mean Platelet Volume 9.9 fl (7.4-10.4); Platelet Count Result 240 k/mm3 (150-375); Red Blood Count 4.68 M/mm3 (4.6-6.20); Red Cell Distribution Width 13.2 % (11.5-14.5); White Blood Count 6.8 K/mm3 (4.5-10.0)
[2022-03-04 13:01] LABS: Alanine Aminotransferase 15 U/L (6-50); Albumin Level 4.3 g/dL (3.5-5.1); Alkaline Phosphatase 55 U/L (38-126); Anion Gap 13 mmol/L (8-16); Aspartate Amino Transferase 26 U/L (17-59); Bilirubin,Total 0.6 mg/dL (0.2-1.3); Blood Urea Nitrogen 15 mg/dL (9-20); CRP < 0.5 mg/dL (<1.0); Calcium 9.6 mg/dL (8.4-10.2); Carbon Dioxide 20 mmol/L (22-30); Chloride 107 mmol/L (98-107); Estimated Glomerular Filt Rate 49; Glucose 90 mg/dL (65-110); Lipase 124 U/L (23-300); Potassium 3.9 mmol/L (3.4-5.0); Sodium 140 mmol/L (137-145)
[2022-03-04 13:20] LABS: Erythrocyte Sedimentation Rate 11 mm/hr (0-20)
[2022-03-04 17:13] LABS: Toxigenic C. Diff POSITIVE (NEGATIVE)
[2022-03-11 00:38] LABS: Calprotectin, Stool 41 mcg/g
== END 2022-03-04 15:05 | disposition home or self-care (01) ==
LOC: ANHLAB 15:04
PROVIDERS: PCP Emergency Medicine; Visit Provider Nurse Practitioner
DX: K50.90 Crohn's disease, unspecified, without complications (principal); R10.9 Unspecified abdominal pain
CPT/HCPCS: 36415; 74018; 80053; 83690; 83993; 85027; 85652; 86140; 87493

== ENCOUNTER 2022-03-14 10:18 | Outpatient (CLI) | payer MEDICARE, BC, SELFPAY ==
--- NOTE | ~2022-03-14 | CT_ITS ---
EXAMINATION: CT abdomen pelvis w con INDICATION: Abdominal pain, history of Crohn disease TECHNIQUE: Computed tomographic images of the abdomen and pelvis were obtained after the administrati on of 100 cc of Omnipaque 350 intravenous contrast. The dose-length product (DLP) was 843.64 mGy-cm. Automated exposure control and iterative reconstruction technique were employed. COMPARISON: 10/31/2018 FINDINGS: Minimal dependent atelectasis is present in the lung bases. The heart size is normal. The g allbladder is surgically absent. There is moderate intrahepatic and extrahepatic biliary dilatation. There is a questionable stone in the distal common bile duct. The liver, pancreas, and adrenal glands are normal. Punctate calcifications in an otherwise normal spleen likely represent healed granulomat ous disease. There is a 6 mm nonobstructing stone of the right kidney. The left kidney is unremarkabl e. There are bowel surgical changes in the right lower quadrant. There is a 2.2 cm stone in the urina ry bladder. There is a 1.7 x 1.3 cm enlarged lymph node in the mesentery of the right lower quadrant. There is no free intraperitoneal gas or evidence of bowel obstruction. IMPRESSION: 1. Moderate intrahepatic and extrahepatic biliary dilatation with possible stone in the distal common bile duct. Recommend correlation for right upper quadrant tenderness and liver function tests. 2. 2.2 cm stone in the urinary bladder. 3. Nonobstructing right nephrolithiasis. 4. Mildly enlarged right lower quadrant lymph node, possibly reactive. Reviewed, dictated and finalized at location A. IMPRESSION: 1. Moderate intrahepatic and extrahepatic biliary dilatation with possible ston e in the distal common bile duct. Recommend correlation for right upper quadran t tenderness and liver function tests. 2. 2.2 cm stone in the urinary bladder. 3. Nonobstructing right nephrolithiasis. 4. Mildly enlarged right lower quadrant lymph node, possibly reactive.
== END 2022-03-14 10:19 | disposition home or self-care (01) ==
PROVIDERS: PCP Emergency Medicine; Visit Provider Nurse Practitioner
DX: K50.90 Crohn's disease, unspecified, without complications (principal); R10.9 Unspecified abdominal pain; N20.0 Calculus of kidney; N21.0 Calculus in bladder
CPT/HCPCS: 74177; Q9967

== ENCOUNTER 2022-04-15 08:18 | Outpatient (CLI) | payer MEDICARE, BC, SELFPAY ==
--- NOTE | ~2022-04-15 | MR_ITS ---
EXAMINATION: MR MRCP wo/w con/w 3D wo ind DATE: 04/15/2022 09:56 INDICATION: Abdominal pain. TECHNIQUE: Magnetic resonance imaging (MRI) of the abdomen was performed without and with 16 mL Multi Yadiel intravenous contrast. Sequences included coronal T2-weighted FS FSE, coronal T2-weighted FSE, a xial T1-weighted LAVA, coronal FS FIESTA, axial dual-echo T1-weighted SPGR, coronal lava-FLEX, sagitt al T2-weighted FSE, axial T2-weighted FSE, and axial DWI. Thick-slab T2-weighted FSE images were obta ined for magnetic resonance cholangiopancreatography (MRCP). Maximum intensity projection 3-D reconst ructions of the volumetric data were created by the technologist. Postcontrast sequences included cor onal LAVA-flex and time course of axial T1-weighted LAVA. COMPARISON: CT abdomen and pelvis 03/14/2022, CT abdomen 10/31/18 FINDINGS: ABDOMEN MRI: There is moderate intrahepatic biliary duct dilatation. The spleen, pancreas, adrenal gl ands, and right kidney are normal. There is an 18 mm cyst in left kidney. There are no dilated loops of bowel. There are no pathologically enlarged lymph nodes. There is no free intraperitoneal fluid. ABDOMEN MRCP: The common duct is dilated to 15 mm, worsened from 11 mm on 10/31/18. No choledocholith iasis. IMPRESSION: 1. Moderate intrahepatic and extrahepatic biliary duct dilatation status post cholecystectomy, stable from 03/14/2022 and worsened from 10/31/2018. Given the normal liver function tests, this finding may not be clinically significant. Reviewed, dictated and finalized at location A. IMPRESSION: 1. Moderate intrahepatic and extrahepatic biliary duct dilatation status post c holecystectomy, stable from 03/14/2022 and worsened from 10/31/2018. Given the no rmal liver function tests, this finding may not be clinically significant.
== END 2022-04-15 08:19 | disposition home or self-care (01) ==
PROVIDERS: PCP Emergency Medicine; Visit Provider Nurse Practitioner
DX: R74.8 Abnormal levels of other serum enzymes (principal); K50.90 Crohn's disease, unspecified, without complications; R10.9 Unspecified abdominal pain
CPT/HCPCS: 74183; 76376; A9577

== ENCOUNTER 2022-05-18 10:14 | Outpatient (CLI) | payer MEDICARE, BC, SELFPAY ==
[2022-05-18 13:57] LABS: Toxigenic C. Diff NEGATIVE (NEGATIVE)
== END 2022-05-18 10:15 | disposition home or self-care (01) ==
PROVIDERS: PCP Emergency Medicine; Visit Provider Nurse Practitioner
DX: K50.90 Crohn's disease, unspecified, without complications (principal); Z86.19 Personal history of other infectious and parasitic diseases
CPT/HCPCS: 87493

== ENCOUNTER 2023-04-27 09:33 | Outpatient (CLI) | payer MEDICARE, BC, SELFPAY ==
--- NOTE | ~2023-04-27 | XR_ITS ---
EXAMINATION: XR abdomen obstructive series DATE: 04/27/2023 11:03 INDICATION: Abdominal pain TECHNIQUE: Upright and supine views of the abdomen were obtained. COMPARISON: 03/04/2022 FINDINGS: The bowel gas pattern is unremarkable. No free intraperitoneal gas or evidence of bowel obs truction. A large bladder stone is again noted. There is a 6 mm stone of the right kidney lower pole. Lumbar levocurvature is noted. There is a surgical staple line in the left lower quadrant. IMPRESSION: 1. Nonobstructive bowel gas pattern. Reviewed, dictated and finalized at location L. UNT DEVELOPMENT MANAGER
== END 2023-04-27 09:34 | disposition home or self-care (01) ==
PROVIDERS: PCP Emergency Medicine; Visit Provider Nurse Practitioner
DX: R10.9 Unspecified abdominal pain (principal); K50.90 Crohn's disease, unspecified, without complications
CPT/HCPCS: 74019

== ENCOUNTER 2023-06-07 11:40 | Emergency (ER) | payer MEDICARE, BC, SELFPAY ==
[2023-06-07] VITALS (8 sets, daily range): BP systolic 125–154; BP diastolic 71–92; PULSE 76–82; RESP 12–20; TEMP 36.2; O2SAT 95–100
--- NOTE | ~2023-06-07 | XR_ITS ---
Portable chest x-ray Comparison: 05/20/2020 Clinical History: Altered mental status Findings: Lungs are clear, without focal consolidation or pleural effusion. Cardiomediastinal silho uette is stable. Bones and soft tissues are unremarkable. Impression: Clear lungs. Reviewed, dictated and finalized at [facility]. NK DASHBOARD DEVELOPER Impression: Clear lungs.
--- NOTE | ~2023-06-07 | CT_ITS ---
EXAMINATION: CT brain wo con INDICATION: Altered mental status COMPARISON: 05/28/2020 TECHNIQUE: Standard unenhanced head CT. The dose-length product (DLP) was 605.33 mGy-cm. The mA was a djusted according to patient size. Iterative reconstruction technique was employed. FINDINGS: No acute intraparenchymal hemorrhage. No evidence of mass lesion. No evidence of acute infa rction. There is mild periventricular and subcortical hypodensity probably related to small vessel is chemic disease. There is mild prominence of the sulci and ventricles related to cerebral atrophy. Int racranial calcified cerebral atherosclerosis is noted. No extra-axial collections. No mass effect or midline shift. Changes in the globes are likely from ocular lens surgery. There is mild mucosal thick ening of the paranasal sinuses. IMPRESSION: 1. No acute intracranial abnormality. 2. Age related findings. Reviewed, dictated and finalized at location B. GER CL[facility]ICAL PHARMACY
--- NOTE | 2023-06-07 13:06 | ECG_ITS ---
Measurements Intervals [place] Rate: 75 P: 41 CA: 167 QRS: 54 QRSD: 97 T: 41 QT: 360 QTc: 404 Interpretive Statements SINUS RHYTHM BASELINE ARTIFACT NONSPECIFIC ST ABNORMALITY BORDERLINE ECG NO PREVIOUS ECG AVAILABLE FOR COMPARISON Electronically Signed On 06-07-2023 16:04:07 GLAZE MAKER by Logan Bonds M.D.
[2023-06-07 13:28] LABS: Basophils Absolute Auto 0.1 K/mm3 (0.0-0.1); Basophils Percent Auto 0.9 % (0.2-1.2); Eosinophils Absolute Auto 0.2 K/mm3 (0-0.3); Eosinophils Percent Auto 1.9 % (0-4.4); Hematocrit 43.9 % (42.0-52.0); Hemoglobin 14.2 g/dL (14.0-18.0); Immature Granulocyte Absolute 0.04 K/mm3 (0.00-0.031); Immature Granulocyte Percent A 0.5 % (0-0.5); Lymphocytes Absolute Auto 0.86 K/mm3 (0.9-3.2); Lymphocytes Percent Auto 10.7 % (18.3-44.2); Mean Corpuscular HGB Conc 32.3 g/dl (32-36); Mean Corpuscular Hemoglobin 29.8 pg (26-34); Mean Corpuscular Volume 92.2 fl (80-100); Mean Platelet Volume 9.7 fl (7.4-10.4); Monocytes Absolute Auto 0.4 K/mm3 (0.1-0.6); Monocytes Percent Auto 4.7 % (2.6-8.5); Neutrophils Absolute Auto 6.6 K/mm3 (1.3-6.7); Neutrophils Percent Auto 81.3 % (45.5-73.1); Platelet Count Result 201 k/mm3 (150-375); Red Blood Count 4.76 M/mm3 (4.6-6.20); Red Cell Distribution Width 13.1 % (11.5-14.5); White Blood Count 8.1 K/mm3 (4.5-10.0)
--- NOTE | 2023-06-07 13:33 | ED.AMS ---
HPI - Altered Mental Status General Chief Complaint: Altered Mental Status Stated Complaint: ams Time Seen by Provider: 06/07/23 13:24 Source: patient and family (cecelia) Limitations: no limitations History of Present Illness HPI narrative: 77 yo male whose LKW was at 10:15am while at primary care physician's office (Dr. Heard). While there, he learned his appointment had been cancelled so he went ahead and went to his next appointment of the day at the dentist. He arrived at about 11am and while there experienced sudden onset confusion that lasted approximately <30 minutes. It is reported he was somewhat combative. He was still in the lobby/waiting room, had not gotten back in the chair and had not yet recevied any medications. He was unable to remember things. This has happened before; ironically niece thinks it was also when he went to the dentist's and thinks it was due to a urinary tract infection at that time. No new home medications in his regimen though Given patient has Crohns, he does admit to taking 3 Immodium AD last night and 3 today in hopes that he could go to his appointments without bowel issues. No history cva/TIA. He states during the episode at times he knew what he wanted to say but couldn't say it and other times he had problems with his memory. For example, he couldn't remember why he was there. Related Data Home Medications Medication Instructions Recorded Confirmed glucosamine-chondroitin 500 mg-400 2 tablet PO DAILY 07/16/19 07/27/21 mg tablet omeprazole 20 mg capsule,delayed 20 mg PO DAILY 07/30/19 07/27/21 release aspirin 81 mg tablet,delayed 81 mg PO DAILY 07/27/21 07/27/21 release cholecalciferol (vitamin D3) 50 50 mcg PO DAILY 07/27/21 07/27/21 mcg (2,000 unit) capsule cholestyramine (with sugar) 4 gram 2 ea PO DAILY 08/15/22 oral powder multivitamin 1 tablet PO DAILY 08/15/22 vitamin B complex 1 tablet PO DAILY 08/15/22 Allergies Allergy/AdvReac Type Severity Reaction Status Date / Time NSAIDS (Non-Steroidal Allergy Unknown Unknown Verified 06/07/23 13:28 Anti-Inflamma Tetanus Vaccines and Toxoid Allergy Unknown Unknown Verified 06/07/23 13:28 tetanus toxoid, adsorbed AdvReac Unknown FLU LIKE Verified 06/07/23 13:28 SYMPTOMS PMFSH Past Medical History Medical History Abdominal pain Anxiety Arthritis BPH (benign prostatic hyperplasia) Colitis Crohn disease Diarrhea GERD (gastroesophageal reflux disease) Heel spur HLD (hyperlipidemia) HTN (hypertension) Hx of Clostridium difficile infection Irritable bowel Irritable bowel syndrome with diarrhea Neck pain Varicose veins of both lower extremities with pain Surgical History Surgical History H/O carpal tunnel repair Left thumb H/O local excision of skin lesion History of arthroscopic knee surgery Left total knee History of cataract surgery History of cholecystectomy History of cystoscopy History of hemicolectomy History of inguinal hernia repair History of lithotripsy X2 History of rotator cuff surgery Bilateral Family History Family History Sibling Heart disease COPD (chronic obstructive pulmonary disease) Mother Breast cancer Sibling Diabetes mellitus Family history of cardiovascular disease Family history of coronary artery disease Mother Hypertension Patient's mother is Father Patient's father is Other Family history of malignant neoplasm of male breast Social History Social History Social History: The patient stated that he would want to be resuscitated but he would not want to live on a machine like a vegetable. His [employer] head is his power employment law attorney for healthcare. He has 2 children. He is retired from [employer]
[2023-06-07 13:38] LABS: Prothrombin Time 13.9 Seconds (11.1-14.7)
[2023-06-07 13:39] LABS: Partial Thromboplastin Time 28.5 SECONDS (22.3-36.8)
[2023-06-07 13:44] LABS: Alanine Aminotransferase 24 U/L (6-50); Albumin Level 4.2 g/dL (3.5-5.1); Alkaline Phosphatase 60 U/L (38-126); Anion Gap 7 mmol/L (8-16); Aspartate Amino Transferase 58 U/L (17-59); Bilirubin,Total 0.8 mg/dL (0.2-1.3); Blood Urea Nitrogen 12 mg/dL (9-20); Calcium 9.5 mg/dL (8.4-10.2); Carbon Dioxide 28 mmol/L (22-30); Chloride 107 mmol/L (98-107); Estimated CRCL calculation 36 ml/min; Estimated Glomerular Filt Rate 49; Glucose 86 mg/dL (65-110); Potassium 3.4 mmol/L (3.4-5.0); Sodium 142 mmol/L (137-145)
[2023-06-07 13:53] LABS: Appearance Urine Cloudy (Clear); Bacteria Urine None Seen /hpf; Bilirubin Urine 1+ (Negative); Blood Urine Negative (Negative); Color Urine Dark Yellow (Yellow); Glucose Urine UA Negative (Negative); Ketones Urine Trace mg/dL (Negative); Leukocyte Esterase Ur Trace LEU/UL (Negative); Need Manual Microscopic Reviewed; Nitrate Urine Negative (Negative); Protein Urine 2+ mg/dL (Negative); Specific Grav Ur 1.025 (1.001-1.035); Squamous Epithelial Cell Urine Few /hpf (Few); WBC Urine 0-5 /hpf
[2023-06-07 13:55] LABS: Add Urine Microscopic? YES
[2023-06-07 14:15] LABS: Acetaminophen < 10 ug/mL (10-30); Ethanol < 10 mg/dL (<10); Salicylate < 1.0 mg/dL (2-20)
[2023-06-07 14:28] LABS: Troponin I < 0.012 ng/mL (0.000-0.034)
--- NOTE | 2023-06-07 14:44 | PC.NURSE ---
pt to CT at this time.
[2023-06-07] MEDS: CIPROFLOXACIN 500 MG TAB PO (17:53)
== END 2023-06-07 17:58 | disposition home or self-care (01) ==
PROVIDERS: Emergency Medicine; Emergency Provider Student in an Organized Health Care Education/Training Program; PCP Emergency Medicine
DX: N39.0 Urinary tract infection, site not specified (principal); T47.6X1A Poisoning by antidiarrheal drugs, accidental (unintentional), initial encounter; R41.0 Disorientation, unspecified; I12.9 Hypertensive chronic kidney disease with stage 1 through stage 4 chronic kidney disease, or unspecified chronic kidney disease; N18.9 Chronic kidney disease, unspecified; I83.93 Asymptomatic varicose veins of bilateral lower extremities; E78.5 Hyperlipidemia, unspecified; N40.0 Benign prostatic hyperplasia without lower urinary tract symptoms; K50.90 Crohn's disease, unspecified, without complications; K21.9 Gastro-esophageal reflux disease without esophagitis; M19.90 Unspecified osteoarthritis, unspecified site; Z96.652 Presence of left artificial knee joint; Z87.891 Personal history of nicotine dependence; Z98.49 Cataract extraction status, unspecified eye; Z90.49 Acquired absence of other specified parts of digestive tract; Z79.82 Long term (current) use of aspirin; Z79.899 Other long term (current) drug therapy
CPT/HCPCS: 36415; 70450; 71045; 80053; 80307; 81001; 84484; 85025; 85610; 85730; 93005; 99284; A9270

== ENCOUNTER 2023-10-10 16:25 | Outpatient (CLI) | payer MEDICARE, BC, SELFPAY ==
--- NOTE | ~2023-10-10 | MR_ITS ---
MRI of the right knee Clinical history: Medial meniscus tear Technique: Coronal proton density and proton density-weighted images, sagittal proton-density and T2 fat-sat images, and axial proton-density fat-saturated images were acquired. Findings: Anterior and posterior cruciate ligaments are intact. Medial collateral ligament and the la teral collateral ligament complex are intact. Popliteus tendon is intact. There is complex tearing of the posterior horn and body of the medial meniscus. No definite lateral m eniscal tear seen. There is extensive moderate to high-grade chondromalacia the medial femoral condyle and medial tibial plateau. Articular cartilage in the lateral compartment is relatively well preserved. There is exten sive moderate to high-grade chondromalacia patella, worst at the apex. There is mild chondral thinnin g of the femoral trochlea. Extensor mechanism is intact. Moderate to large joint effusion present. There is a multiseptated gang lion cyst along the posterior margin of the knee joint, uncertain precise origin. This measures 3.9 c m in craniocaudal extent, 2.4 cm in transverse diameter, and 0.8 cm in AP dimension (sagittal images 12-15). Impression: Complex tearing of the posterior horn and body of the medial meniscus. Degenerative change, particularly of the medial and patellofemoral compartment, as detailed above. 3.9 x 2.4 x 0.8 cm multiseptated ganglion cyst along the posterior margin of the knee joint, of uncer tain precise origin. Moderate to large joint effusion. Reviewed, dictated and finalized at [facility]. Impression: Complex tearing of the posterior horn and body of the medial meniscus. Degenerative change, particularly of the medial and patellofemoral compartment, as detailed above. 3.9 x 2.4 x 0.8 cm multiseptated ganglion cyst along the posterior margin of th e knee joint, of uncertain precise origin. Moderate to large joint effusion.
== END 2023-10-10 16:26 | disposition home or self-care (01) ==
PROVIDERS: PCP Emergency Medicine; Visit Provider Orthopaedic Surgery
DX: S83.241A Other tear of medial meniscus, current injury, right knee, initial encounter (principal); X58.XXXA Exposure to other specified factors, initial encounter; S83.231A Complex tear of medial meniscus, current injury, right knee, initial encounter; M25.461 Effusion, right knee
CPT/HCPCS: 73721

== ENCOUNTER 2024-05-22 12:17 | Outpatient (CLI) | payer MEDICARE, BC, SELFPAY ==
[2024-05-22 13:00] LABS: Hematocrit 43.9 % (42.0-52.0); Hemoglobin 14.1 g/dL (14.0-18.0); Mean Corpuscular HGB Conc 32.1 g/dl (32-36); Mean Corpuscular Hemoglobin 29.7 pg (26-34); Mean Corpuscular Volume 92.6 fl (80-100); Mean Platelet Volume 10.6 fl (7.4-10.4); Platelet Count Result 259 k/mm3 (150-375); Red Blood Count 4.74 M/mm3 (4.6-6.20); Red Cell Distribution Width 13.1 % (11.5-14.5); White Blood Count 9.5 K/mm3 (4.5-10.0)
[2024-05-22 13:22] LABS: Alanine Aminotransferase 14 U/L (6-50); Albumin Level 4.2 g/dL (3.5-5.1); Alkaline Phosphatase 57 U/L (38-126); Anion Gap 6 mmol/L (4-12); Aspartate Amino Transferase 27 U/L (17-59); Bilirubin,Total 0.5 mg/dL (0.2-1.3); Blood Urea Nitrogen 18 mg/dL (9-20); CRP < 0.5 mg/dL (<1.0); Carbon Dioxide 26 mmol/L (22-30); Chloride 109 mmol/L (98-107); Estimated Glomerular Filt Rate 53; Glucose 114 mg/dL (65-110); Potassium 3.8 mmol/L (3.4-5.0); Sodium 141 mmol/L (137-145)
[2024-05-22 14:20] LABS: Iron 51 ug/dL (49-181)
[2024-05-22 14:23] LABS: Folic Acid > 20.0 ng/mL (2.76->20)
[2024-05-22 14:31] LABS: Percent Iron Saturation 13 % (20-50)
[2024-05-22 15:42] LABS: Erythrocyte Sedimentation Rate 14 mm/hr (0-20)
[2024-05-26 20:38] LABS: Pancreatic Elastase, Stool 709 mcg/g (>200)
== END 2024-05-22 12:18 | disposition home or self-care (01) ==
PROVIDERS: PCP Emergency Medicine; Visit Provider Nurse Practitioner
DX: K50.90 Crohn's disease, unspecified, without complications (principal); N18.4 Chronic kidney disease, stage 4 (severe); E78.2 Mixed hyperlipidemia
CPT/HCPCS: 36415; 80053; 82607; 82653; 82728; 82746; 83540; 83550; 83993; 85027; 85652; 86140; 87045; 87269; 87427; 87449; 87493

== ENCOUNTER 2025-04-25 17:02 | Emergency (ER) | payer MEDICARE, BC, SELFPAY ==
--- OUTSIDE RECORDS SUMMARY | 2007-03-27 10:31 | XMS_ITS | Continuity of Care Document ---
Author Organization [facility] Address [address] [place] [address] [address] [place] [address] Phone Care Team Providers Care Obstetrician Name Role Phone Paris Brown Unavailable Unavailable Procedures Procedure Date Eye Exam, New Patient Advance Directives Directive Yes / No Effective Date File Name No Information Encounters Encounter Description Practice Location Reason(s) For Visit Diagnoses Date Provider Providers Copied on Encounter [facility], [id number] [place] [address] [address], [place], [place], [id number], [place] tel:[phone] [facility] No Information 9-[address] [place]. [address] , [address], [place], [address], [place]. tel:[phone] Family History Family Member Type Diagnosis Age At Onset No Information Payers Payer name Insurance type Covered libertarian ID Authoriza tion(s) No Information Social History Type Description Quantity Date Captured Comments Sex Male Smoking Status No Information Chief Complaint And Reason For Visit No Information Reason For Referral Reason For Referral No Information History Of Present Illness Encounter Date Complaint History Of Prese nt Illness No Information Functional Status Date Functional Assessmen t No Information Instructions Date Instruction Additional Infor mation No Information Assessments Type Assessment Date No Information Patient Care Teams Name Effective Dates (start - stop) Status Members No Information
[2025-04-25] VITALS (18 sets, daily range): BP systolic 99–131; BP diastolic 65–88; PULSE 91–94; RESP 16–18; TEMP 36.4; O2SAT 96–99
--- NOTE | ~2025-04-25 | CT_ITS ---
EXAMINATION: CT chest abdomen pelvis w con DATE: 04/25/2025 21:18 TURNAROUND ENGINEER INDICATION: Sepsis TECHNIQUE: Computed tomography (CT) of the chest, abdomen, and pelvis was performed with 100 cc Omnipaque 350 intravenous contrast. The dose-length product was 644.16 mGy-cm. Automated exposure control and iterative reconstruction technique were employed. COMPARISON: CT dated 03/14/2022 FINDINGS: Chest/abdomen/pelvis CT: Heart size normal. No significant pleural or pericardial effusion. Status post cholecystectomy with expected prominence of the bile ducts. No focal airspace consolidation. No suspicious pulmonary nodules or masses. There are calcified granulomas of the right lung. No endobronchial lesions. No pneumothorax. There is a cyst of the left thyroid lobe, likely benign. Moderate thoracic spondylosis. Severe lumbar spondylosis with grade 1 degenerative spondylolisthesis at L4-5. Mild splenomegaly. The pancreas, adrenal glands are unremarkable. There are nonobstructing bilateral renal stones. There is bladder wall thickening and multiple bladder stones. Enlarged prostate gland. Nonobstructing bowel gas pattern. No free air or free fluid. IMPRESSION: 1. Bladder wall thickening, suspicious for cystitis versus L1 obstruction due to enlarged prostate gland. 2: Bilateral nonobstructing renal stones. Bladder stones. 3: Enlarged prostate gland. Reviewed, dictated and finalized at location O. AROUND ENGINEER IMPRESSION: 1. Bladder wall thickening, suspicious for cystitis versus L1 obstruction due t o enlarged prostate gland. 2: Bilateral nonobstructing renal stones. Bladder stones. 3: Enlarged prostate gland.
--- OUTSIDE RECORDS SUMMARY | 2025-04-25 17:04 | XMS_ITS | Clinical Summary ---
Author Organization [facility] Address [address] [place] [address] Care Team Providers Care Smutter Name Role Phone None, Provider MD Primary Care Provider Unavaila ble None, Provider MD Unavailable Unavailable Allergies Active Allergy Reactions Criticality Noted Date Comments Iqrojpj-Hknrle-Drxfb Pertussis Nausea and Vomiting 04/30/2019 Medications mesalamine 250 MG capsule Take 2,000 mg by mouth 2 (two) times a day. Active clorazepate 7.5 MG tablet Take 7.5 mg by mouth 4 (four) times daily. Active fenofibrate 160 MG tablet Take 160 mg by mouth daily. Active lisinopril 10 MG tablet Take 10 mg by mouth daily. Active tamsulosin 0.4 MG Cap Take 0.4 mg by mouth 2 (two) times a day. Active cholestyramine 4 G packet Take 4 g by mouth 2 (two) times daily with meals. Active omeprazole 20 MG capsule Take 20 mg by mouth daily. Active multi vitamin/mineral s (MULTI-VITAMIN DAILY) tablet Take 1 tablet by mouth daily. Active Misc Natural Products (LUTEIN 20 OR) Activ e B Complex-C Tab tablet Take 1 tablet by mouth daily. Active Lactobacillus (PROBIOTIC ACIDOPHILUS OR) Take by mouth daily. Active vitamin D3, cholecalciferol , (VITAMIN D-3) 10 MCG (400 UNIT) tablet Take 400 Units by mouth daily. Active predniSONE 10 mg tablet 2 tablets PO BID x 4 days, then 1 tablet PO BID x 4 days, then 1 tablet daily x 4 days. 32 tablet 9 Active traMADol (ULTRAM) 50 MG tabletIndicatio ns:Acute Pain < 7 Day Supply Take 1 tablet (50 mg total) by mouth every 6 (six) hours as needed. Indications: Acute Pain < 7 Day Supply 15 tablet 5 Active methylPREDNISol one, REEMA, (MEDROL DOSEPAK) 4 MG tablet Take 1 tablet (4 mg total) by mouth 2 (two) times daily. Follow package directions 1 each 5 Active famotidine (PEPCID) 20 MG tablet Take 1 tablet (20 mg total) by mouth 2 (two) times daily. 20 tablet 5 Active naloxone (NARCAN) 4 MG/0.1ML nasal spray 1 spray by Nasal route as needed for Opioid reversal. may repeat every 2 to 3 minutes in alternating nostrils until medical assistance becomes available 1 each 5 04/12/20 26 Active cephALEXin (KEFLEX) 500 MG capsule Take 1 capsule (500 mg total) by mouth 4 (four) times daily for 5 days. 20 capsule 5 04/17/20 25 Encounters Date Type Department Care Team Description 04/12/2025 9:43 AM CDT - 04/12/2025 11:09 AM CDT Emergency [facility] Emergency Room [address] [place] [address] Mike Gonzalez MD Urinary Frequency Discharge Disposition: Home or Self Care (Routine Discharge) 04/12/2025 Travel from Last 3 Months Social History Tobacco Use Types Packs/Day Years Used Date Smoking Tobacco: Never Smokeless Tobacco: Never Alcohol Use Standard Drinks/Week Comments No 0 (1 standard drink = 0.6 oz pur e alcohol) AUDIT-C Answer Date Recorded Frequency of Alcohol Consumption Never 04/30/2019 Average Number of Drinks Not on file 019 Frequency of Binge Drinking Not on file 04/19 Sex and Gender Information Value Date Recorded Sex Assigned at Not on file Legal Sex Male 7:30 PM CDT Gender Identity Not on file Sexual Orientation Not on file Last Filed Vital Signs Vital Sign Reading Time Taken Comments Blood Pressure 150/66 04/12/2025 11:00 AM CDT Pulse 76 04/12/2025 11:00 AM CDT Temperature 36.7 C (98 F) 04/12/2025 11:00 AM CDT Respiratory Rate 18 04/12/2025 11:0 0 AM CDT Oxygen Saturation 98% 04/12/2025 11: 00 AM CDT Inhaled Oxygen Concentration - - Weight 81.6 kg (179 lb 14.3 oz) 04/12/2025 9:48 AM CDT Height 170.2 cm (5' 7) 04/12/2025 9:48 AM CDT Body Mass Index 28.18 04/12/2025 9:48 AM CDT Plan of Treatment Health Maintenance Due Date Last Done Comments DTaP, Tdap and Td Vaccines (1 - Tdap) 1962 Pneumococcal Vaccine: 50+ Years (1 of 1 - PCV) 1993 Zoster Vaccines (1 of 2) 1993 Annual Medicare Wellness Visit 2008 RSV Immunization or 60+ Years (1 - 1-dose 75+ series) 2018 COVID-19 Vaccine ( - season) 2025 04/07/2022, 12/31/2021, 06/28/2021, Additional history exists Influenza Adult (#1) 2025 Hepatitis A Vaccines Aged Out No long er eligible based on patient's age to complete this topic Meningococcal B Vaccine Aged Out No l onger eligible based on patient's age to complete this topic Meningococcal Vaccine Aged Out No craig mary eligible based on patient's age to complete this topic RSV Immunizations Under 20 Months Aged Out No longer eligible based on patient's age to complete this topic Procedures Procedure Name Priority Date/Time Associated Diagnosis Comments URINALYSIS, AUTO, COMPLETE STAT 04/12/2025 10:00 AM CDT from Last 3 Months Results * (ABNORMAL) Urinalysis, Auto, Complete (04/12/2025 10:00 AM CDT) COLOR (U) YELLOW 04/12/2025 10:14 AM CDT [facility] TRANSPARENCY CLEAR 04/12/2025 10:14 AM CDT [facility] SPECIFIC GRAVITY (U) 1.025 1.000 - 1.030 04/12/2025 10:14 AM CDT [facility] U PH 6.0 5.0 - 9.0 04/12/2025 10:14 AM CDT [facility] LEUKOCYTES (U) TRACE(A) NEGATIVE 04/12/2025 10:14 AM CDT [facility] NITRITES NEGATIVE NEGATIVE 04/12/2025 10:14 AM CDT [facility] PROTEIN RANDOM (U) 3+(A) NEGATIVE 04/12/2025 10:14 AM CDT [facility] GLUCOSE (U) NEGATIVE NEGATIVE 04/12/2025 10:14 AM CDT [facility] KETONES MG/DL (U) NEGATIVE NEGATIVE 04/12/2025 10:14 AM CDT [facility] BILIRUBIN (U) NEGATIVE NEGATIVE 04/12/2025 10:14 AM CDT [facility] BLOOD (U) 2+(A) NEGATIVE 04/12/2025 10:14 AM CDT [facility] WBC/HPF 5-10 0 - 5 /HPF 04/12/2025 10:14 AM CDT [facility] RBC/HPF 5-10 0 - 5 /HPF 04/12/2025 10:14 AM CDT [facility] EPI/HPF MODERATE /HPF 04/12/2025 10:14 AM CDT [facility] BACTERIA (U) FEW /HPF 04/12/2025 10:14 AM CDT [facility] URINE SPECIMEN OBTAINED BY CLEAN CATCH PROCEDURE / Unknown 04/12/2025 10:00 AM CDT us Mike Gonzalez MD URINE ORDERABLES Final Result [facility] [address] [place] [address], [place] [phone] from Last 3 Months Insurance MEDICARE [facility] MEDICARE [facility] MEDICARE [facility] Care Teams Smutter Relationship Specialty Start Date End Date None, ProviderMD PCP - General 05/11/21 None, MD Tash 05/11/21
--- OUTSIDE RECORDS SUMMARY | 2025-04-25 17:04 | XMS_ITS | Clinical Summary ---
Author Organization [facility] Address [address] [place] [address] Phone Care Team Providers Care Subeditor Name Role Phone Yash Heard MD Primary Care Provider [phone] Allergies Active Allergy Reactions Criticality Noted Date Comments Guyhmbx-Dyscvp-Ykmom Pertussis Nausea And Vomiting 04/30/2019 Medications B Complex-C (B COMPLEX-VITAMIN C) tablet Take 1 tablet by mouth daily Active cholestyramine (QUESTRAN) 4 g packet Take 4 g by mouth 2 times daily Active clorazepate (TRANXENE) 7.5 MG tablet Take 7.5 mg by mouth 4 times daily Active fenofibrate (TRIGLIDE) 160 MG tablet Take 160 mg by mouth daily Active mesalamine (PENTASA) 250 MG CR capsule Take 2,000 mg by mouth Active Multiple Vitamins-Mineral s (MULTI VITAMIN/MINERALS ) tablet Take 1 tablet by mouth daily Active omeprazole (PriLOSEC) [address] capsule Take 20 mg by mouth daily Active tamsulosin (FLOMAX) 0.4 MG 24 hr capsule Take 0.4 mg by mouth Active metoprolol tartrate (LOPRESSOR) 25 MG tablet Take 25 mg by mouth 2 (two) times a day Active cholecalciferol (VITAMIN D-3) 50 MCG (1999) capsule Take 2,000 Units by mouth 1 (one) time each day Active aspirin 81 MG chewable tablet Chew 81 mg 1 (one) time each day Active LUTEIN PO Take by mouth Active glucosamine-jonny droitin 500-400 MG tablet Take 1 tablet by mouth 3 (three) times a day Active Probiotic Product (PROBIOTIC ADVANCED PO) Take by mouth Active budesonide EC (ENTOCORT EC) 3 MG 24 hr capsule Take by mouth 1 (one) time each day 05/10/2020 Active amLODIPine (NORVASC) 5 MG tablet 05/16/2021 Active acetaminophen (TYLENOL) 325 MG tablet Take 650 mg by mouth 05/16/2021 Active lisinopril (PRINIVIL) 5 MG tablet 05/16/2021 Active pravastatin (PRAVACHOL) 10 MG tablet Take 1 tablet (10 mg total) by mouth 1 (one) time each day 30 tablet 5 07/05/2021 Active Active Problems Problem Noted Date Diagnosed Date Crohn's disease 05/12/2021 Hematoma of subdural space of neuraxis Hypertensive disorder 05/12/2021 Stage 3b chronic kidney disease 03/23/2020 Anxiety disorder 03/25/2010 Hypercholesterolemia 03/25/2010 Immunizations Immunization Administration Dates Next Due Influenza TIV (IM) 07/05/2021(Deferred: Patient Refused) Pneumococcal Conjugate 07/05/2021(Deferred: Katty ent Refused) Family History Medical History Relation Comments Kidney disease Neg Hx Social History Tobacco Use Types Packs/Day Years Used Date Smoking Tobacco: Former Smokeless Tobacco: Never Alcohol Use Standard Drinks/Week Comments Yes 0 (1 standard drink = 0.6 oz pur e alcohol) rare Sex and Gender Information Value Date Recorded Sex Assigned at Not on file Legal Sex Male 10:26 AM MDT Gender Identity Not on file Sexual Orientation Not on file Last Filed Vital Signs Vital Sign Reading Time Taken Comments Blood Pressure 122/72 07/05/2021 10:00 AM TIME ANALYSIS CLERK Pulse 84 07/05/2021 10:00 AM TIME ANALYSIS CLERK Temperature 35.5 C (95.9 F) 07/05/2021 10:00 AM TIME ANALYSIS CLERK Respiratory Rate - - Oxygen Saturation - - Inhaled Oxygen Concentration - - Weight 85.7 kg (189 lb) 07/05/2021 10:00 AM TIME ANALYSIS CLERK Height 167.6 cm (5' 6) 07/05/2021 10:00 AM TIME ANALYSIS CLERK Body Mass Index 30.51 07/05/2021 10:00 AM TIME ANALYSIS CLERK Plan of Treatment Health Maintenance Due Date Last Done Comments Pneumococcal PPSV23/PCV13 65 + Years / Low and Medium Risk (1 of 2 - PCV) 1993 Influenza Vaccine (#1) 2025 Insurance MEDICARE [facility] Care Teams Subeditor Relationship Specialty Start Date End Date Yash Heard MD [address] [place] [phone] PCP - General Internal Medicine 02/03/20
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
--- NOTE | 2025-04-25 17:37 | CONSULT_PTH ---
PATIENT: Jair Hardin Jr. LOC: [facility] [place]#:[id number] AGE/SX: 79/M ROOM: RE04/25/[address]: Paul Bravo MD : 1945 BED: DIS: 04/26/2025 SPEC #: [id number] RECD: 04/25/25 18:29 STATUS: BATOOL REQ #: [id number] ALYSIA: 04/25/25 17:[address]: Yash Heard DEPT: [facility] Consult RECD BY: Tariq Castelan MLT, ([facility]) Tissues: A - Peripheral Smear Procedures: Hematology Consult
[2025-04-25 17:44] LABS: Hematocrit 34.8 % (42.0-52.0); Hemoglobin 11.1 g/dL (14.0-18.0); Mean Corpuscular HGB Conc 31.9 g/dl (32-36); Mean Corpuscular Hemoglobin 29.3 pg (26-34); Mean Corpuscular Volume 91.8 fl (80-100); Platelet Count Result 292 k/mm3 (150-375); Red Blood Count 3.79 M/mm3 (4.6-6.20)
[2025-04-25 18:11] LABS: White Blood Count 95.5 K/mm3 (4.5-10.0)
[2025-04-25 18:24] LABS: Band Neutrophils Percent 26 % (0-6); Basophils Absolute Manual 2.86 K/mm3 (0.0-0.1); Basophils Percent Manual 3 % (0-1); Eosinophils Absolute Manual 0.95 K/mm3 (0.02-0.50); Eosinophils Percent Manual 1 % (0-4); Lymphocytes Absolute Manual 0.95 K/mm3 (1.1-4.5); Lymphocytes Percent Manual 1 % (18-44); Monocytes Absolute Manual 1.91 K/mm3 (0.1-0.90); Monocytes Percent Manual 2 % (3-9); Neutrophils Absolute Manual 73.53 K/mm3 (1.3-6.7); Neutrophils Percent Manual 51 % (46-73); Total Cells Counted 100
[2025-04-25 18:25] LABS: Metamyelocytes Percent 8 %; Myelocytes Percent 4 %; Promyelocytes Percent 4 %; Schistocytes None Seen
--- NOTE | 2025-04-25 19:18 | PC.NURSE ---
Report received from NORMA Grissom. Assumed care of patient at this time.
[2025-04-25 20:29] LABS: Alanine Aminotransferase 15 U/L (6-50); Albumin Level 3.4 g/dL (3.5-5.1); Alkaline Phosphatase 45 U/L (38-126); Anion Gap 6 mmol/L (4-12); Aspartate Amino Transferase 38 U/L (17-59); Bilirubin,Total 0.3 mg/dL (0.2-1.3); Blood Urea Nitrogen 17 mg/dL (9-20); Calcium 9.0 mg/dL (8.4-10.2); Carbon Dioxide 24 mmol/L (22-30); Chloride 109 mmol/L (98-107); Estimated CRCL calculation 33 ml/min; Estimated Glomerular Filt Rate 44; Glucose 129 mg/dL (65-110); Potassium 3.4 mmol/L (3.4-5.0); Sodium 139 mmol/L (137-145); Total Protein 6.4 g/dL (6.3-8.2); Uric Acid 7.7 mg/dL (3.5-8.5)
[2025-04-25 20:42] LABS: Add Urine Microscopic? YES; Appearance Urine Cloudy (Clear); Glucose Urine UA Negative (Negative); Leukocyte Esterase Ur 1+ LEU/UL (Negative); Need Manual Microscopic Reviewed; Nitrate Urine Negative (Negative); Non Pathogenic Casts >20; Specific Grav Ur 1.023 (1.001-1.035)
--- NOTE | 2025-04-25 21:47 | ED_ITS ---
HPI - General Adult General Chief complaint: Recheck/Abnormal Lab/Rx <Paul Bravo MD - Last Filed: 04/25/25 21:54> Stated complaint: abn labs <Paul Bravo MD - Last Filed: 04/25/25 21:54> Time Seen by Provider: 04/25/25 18:36 <Paul Bravo MD - Last Filed: 04/25/25 21:54> Source: patient <Paul Bravo MD - Last Filed: 04/25/25 21:54> Mode of arrival: ambulatory <Paul Bravo MD - Last Filed: 04/25/25 21:54> Limitations: no limitations <Paul Bravo MD - Last Filed: 04/25/25 21:54> History of Present Illness HPI narrative: 79-year-old with a history of Crohn's, recurrent urinary tract infection, hypertension here with the complaints of elevated WBC count. Patient's family who is at bedside states that he has been dealing with urinary tract infection for last several weeks. Been on several different kinds of antibiotics. Denies any fever or chills. No history of nausea or vomiting. Has occasional lower abdominal pain. Had outpatient lab work done at the GI office who called him to come to the ER for high white count. <Paul Bravo MD - Last Filed: 04/25/25 21:54> Onset (ago): day(s) (1) <Paul Bravo MD - Last Filed: 04/25/25 21:54> Severity: mild <Paul Bravo MD - Last Filed: 04/25/25 21:54> Relieving factors: none <Paul Bravo MD - Last Filed: 04/25/25 21:54> Exacerbating factors: none <Paul Bravo MD - Last Filed: 04/25/25 21:54> Related Data Home medications: Home Medications ?Medication ?Instructions ?Recorded ?Confirmed ?Last Taken ?Type glucosamine-chondroitin 500 mg-400 2 tablet PO DAILY 0 07/16/19 04/25/25 04/25/25 History mg tablet omeprazole 20 mg capsule,delayed 20 mg PO DAILY 04/25/25 04/25/25 History release aspirin 81 mg tablet,delayed 81 mg PO DAILY 07/27/21 1 06/25/24 04/25/25 History release cholecalciferol (vitamin D3) 50 50 mcg PO DAILY 04/25/25 04/25/25 History mcg (2,000 unit) capsule multivitamin 1 tablet PO DAILY 08/15/22 1 06/25/24 04/25/25 History vitamin B complex 1 tablet PO DAILY 08/15/22 1 06/25/24 04/25/25 History Saccharomyces boulardii 250 mg 250 mg PO BID 10/03/23 04/25/25 04/25/25 History capsule (Daily Probiotic (S. boulardii)) cholestyramine (with sugar) 4 gram 2 ea PO BID 5 04/25/25 04/25/25 History powder for susp in a packet <Paul Bravo MD - Last Filed: 04/25/25 21:54> Allergies/adverse reactions: Allergies Allergy/AdvReac Type Severity Reaction Status Date / Time NSAIDS (Non-Steroidal Allergy Unknown Unknown Verified 04/23/25 10:52 Anti-Inflamma Tetanus Vaccines and Toxoid Allergy Unknown Unknown Verified 04/23/25 10:52 sulfasalazine AdvReac Intermediate Weakness Verified 04/23/25 10:52 tetanus toxoid, adsorbed AdvReac Unknown FLU LIKE Verified 04/23/25 10:52 SYMPTOMS <Paul Bravo MD - Last Filed: 04/25/25 21:54> Review of Systems 2 Review of Systems: All systems reviewed & are unremarkable except as noted in HPI and below <Paul Bravo MD - Last Filed: 04/25/25 21:54> Constitutional: Constitutional: Reports no additional constitutional complaints <Paul Bravo MD - Last Filed: 04/25/25 21:54> Eyes: Eyes: Reports no additional eye complaints <Paul Bravo MD - Last Filed: 04/25/25 21:54> ENT: Reports system reviewed and no additional complaints, except as documented <Paul Bravo MD - Last Filed: 04/25/25 21:54> Cardiovascular: Cardiovascular: Reports no additional cardiovascular complaints <Paul Bravo MD - Last Filed: 04/25/25 21:54> Respiratory: Respiratory: Reports no additional respiratory complaints < Paul Bravo MD - Last Filed: 04/25/25 21:54> Gastrointestinal: Gastrointestinal: Reports no additional gastrointestinal complaints <Paul Bravo MD - Last Filed: 04/25/25 21:54> Musculoskeletal: Musculoskeletal: Reports no additional musculoskeletal complaints <Paul Bravo MD - Last Filed: 04/25/25 21:54> Neurologic: Reports system reviewed and no additional complaints, except as documented <Paul Bravo MD - Last Filed: 04/25/25 21:54> [facility] Past Medical History Medical History: Medical History Macular degeneration Urinary tract infection Right knee pain Acute medial meniscus tear of right knee Abnormal CT scan Kidney stone Irritable bowel syndrome with diarrhea Hx of Clostridium difficile infection Diarrhea Abdominal pain Impacted cerumen, right ear Irritable bowel Subdural hematoma Anxiety Arthritis GERD (gastroesophageal reflux disease) Heel spur Varicose veins of both lower extremities with pain HTN (hypertension) Neck pain Crohn disease Colitis BPH (benign prostatic hyperplasia) HLD (hyperlipidemia) <Paul Bravo MD - Last Filed: 04/25/25 21:54> Surgical History Surgical History: Surgical History History of knee replacement procedure of left knee History of total left knee replacement 12/02/15 History of foot surgery bilateral heel History of shoulder surgery right 1988 left 1998 H/O carpal tunnel repair Left thumb H/O local excision of skin lesion History of cystoscopy History of lithotripsy X2 History of inguinal hernia repair History of hemicolectomy History of rotator cuff surgery Bilateral History of cholecystectomy History of cataract surgery <Paul Bravo MD - Last Filed: 04/25/25 21:54> Family History Family History: Family History Sibling Heart disease COPD (chronic obstructive pulmonary disease) Mother Breast cancer Sibling Diabetes mellitus Family history of cardiovascular disease Family history of coronary artery disease Mother Hypertension Patient's mother is Father Patient's father is Other Family history of malignant neoplasm of male breast <Paul Bravo MD - Last Filed: 04/25/25 21:54> Social History Social History: Social History Social History: The patient stated that he would want to be resuscitated but he would not want to live on a machine like a vegetable. 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 He has 2 children. He is retired from [employer]. He is to smoke and quit in the 80s. Smoking packs per day: 1.5 Smoking cigarettes per day: 30.0 Years smoked: 23 Smoking pack-years: 34.50 Tobacco type: cigarettes Second hand tobacco smoke exposure: Yes Smoking end date: 06/19/79 Alcohol intake: former Substance use: never Do You Feel Safe in your Home?: Yes Lack of Transportation: No Lack of Food: Never True Current Housing: Decline to Answer Concerned About Future Housing: Decline to Answer Difficulty Paying Gas/Electric Bills: Decline to Answer Difficulty Paying for Meds: Decline to Answer Currently Unemployed: Decline to Answer Education: Decline to Answer Difficulty w/ Childcare or Family Care: Decline to Answer Living arrangements: with family Occupation/Education: retired Gender identity (if verbalized by the patient): Male Spiritual care concerns: No Agree to blood products: Yes <Paul Bravo MD - Last Filed: 04/25/25 21:54> Exam 2 Narrative: GENERAL: Well-appearing, well-nourished, and in no acute distress. HEAD: Normocephalic, atraumatic. EYES: PERRLA and EOMI. ENT: Nares clear, no rhinorrhea or epistaxis. Mucous membranes moist. NECK: Supple. CHEST: Clear to auscultation. No respiratory distress. HEART: Regular rate and rhythm. No murmur heard. Normal peripheral pulses. ABDOMEN: Soft, nontender, nondistended, normal active bowel sounds. EXTREMITIES: Normal range of motion. No edema. SKIN: Warm, dry, no rash. NEURO: No focal deficits. Alert and oriented x3. PSYCH: Normal mood and affect. <Paul Bravo MD - Last Filed: 04/25/25 21:54> Course Course Emergency Course: Notified patient and family about his lab work, CT findings. I discussed with oncology team at the [facility] ,recommended to be admittied to Medical floor and he does not have acute Lukemia <Paul Bravo MD - Last Filed: 04/25/25 21:54> Notified patient and family about his lab work, CT findings. I discussed with oncology team at the [facility] ,recommended to be admittied to Medical floor and he does not have acute Lukemia NIKKY: Patient signed out to me pending oncology consult. Case was discussed with Dr Gibson (onc) from the [facility]. Patient's presentation is consistent with chronic myeloid leukemia. Patient does not do need to be transferred emergently. He has been instructed to call Shana Knight at [phone] early next week to arrange close follow-up. This was discussed with the patient and they are comfortable with this plan. <Seth Hollingsworth MD - Last Filed: 04/26/25 00:19> Vital Signs Vital signs: Vital Signs Temperature 97.6 F 04/25/25 17:11 Pulse Rate 91 04/25/25 17:11 Respiratory Rate 16 04/25/25 17:11 Blood Pressure 131/84 04/25/25 17:11 Pulse Oximetry 98 04/25/25 17:11 Temperature 97.6 F 04/25/25 17:11 Pulse Rate 91 04/25/25 23:35 Respiratory Rate 18 04/25/25 23:35 Blood Pressure 128/69 04/25/25 23:35 Pulse Oximetry 96 04/25/25 23:35 <Paul Bravo MD - Last Filed: 04/25/25 21:54> Vital Signs Temperature 97.6 F 04/25/25 17:11 Pulse Rate 91 04/25/25 17:11 Respiratory Rate 16 04/25/25 17:11 Blood Pressure 131/84 04/25/25 17:11 Pulse Oximetry 98 04/25/25 17:11 Temperature 97.6 F 04/25/25 17:11 Pulse Rate 91 04/25/25 23:35 Respiratory Rate 18 04/25/25 23:35 Blood Pressure 128/69 04/25/25 23:35 Pulse Oximetry 96 04/25/25 23:35 <Seth Hollingsworth MD - Last Filed: 04/26/25 00:19> Medical Decision Making Differential Diagnosis Differential Diagnosis: sepsis , acute leukemia , leukemoid reaction <Paul Bravo MD - Last Filed: 04/25/25 21:54> Vital Signs Vital Signs: Vital Signs Temperature 97.6 F 04/25/25 17:11 Pulse Rate 91 04/25/25 17:11 Respiratory Rate 16 04/25/25 17:11 Blood Pressure 131/84 04/25/25 17:11 Pulse Oximetry 98 04/25/25 17:11 Temperature 97.6 F 04/25/25 17:11 Pulse Rate 91 04/25/25 23:35 Respiratory Rate 18 04/25/25 23:35 Blood Pressure 128/69 04/25/25 23:35 Pulse Oximetry 96 04/25/25 23:35 <Paul Bravo MD - Last Filed: 04/25/25 21:54> Vital Signs Temperature 97.6 F 04/25/25 17:11 Pulse Rate 91 04/25/25 17:11 Respiratory Rate 16 04/25/25 17:11 Blood Pressure 131/84 04/25/25 17:11 Pulse Oximetry 98 04/25/25 17:11 Temperature 97.6 F 04/25/25 17:11 Pulse Rate 91 04/25/25 23:35 Respiratory Rate 18 04/25/25 23:35 Blood Pressure 128/69 04/25/25 23:35 Pulse Oximetry 96 04/25/25 23:35 <Seth Hollingsworth MD - Last Filed: 04/26/25 00:19> Lab Data Lab results reviewed: Yes I reviewed the patient's lab results. <Paul Bravo MD - Last Filed: 04/25/25 21:54> Result diagrams: 04/25/25 17:38 04/25/25 20:00 <Paul Bravo MD - Last Filed: 04/25/25 21:54> Labs: Lab Results 04/25/25 04/25/25 04/25/25 Range/Units 17:38 20:00 20:04 WBC 95.5 H* (4.5-10.0) K/mm3 RBC 3.79 L (4.6-6.20) M/mm3 Hgb 11.1 L D (14.0-18.0) g/dL Hct 34.8 L (42.0-52.0) % MCV 91.8 (80-100) fl MCH 29.3 (26-34) pg MCHC 31.9 L (32-36) g/dl RDW 17.6 H (11.5-14.5) % Plt Count 292 (150-375) k/mm3 MPV 10.1 (7.4-10.4) fl Immature Gran % (Auto) Not Reportable Neut % (Auto) Not Reportable Lymph % (Auto) Not Reportable [place] % (Auto) Not Reportable Eos % (Auto) Not Reportable Baso % (Auto) Not Reportable Lymph # (Auto) Not Reportable [place] # (Auto) Not Reportable Eos # (Auto) Not Reportable Baso # (Auto) Not Reportable Abs Immat Gran (auto) Not Reportable Absolute Neuts (auto) Not Reportable Absolute Nucleated RBC Not Reportable Total Counted 100 Neutrophils % (Manual) 51 (46-73) % Band Neutrophils % 26 H (0-6) % Lymphocytes % (Manual) 1 L (18-44) % Monocytes % (Manual) 2 L (3-9) % Eosinophils % (Manual) 1 (0-4) % Basophils % (Manual) 3 H (0-1) % Metamyelocytes % 8 % Myelocytes % 4 % Promyelocytes % (Man) 4 % Nucleated RBC % Not Reportable Abs Neuts (Manual) 73.53 H (1.3-6.7) K/mm3 Abs Lymphs (Manual) 0.95 L (1.1-4.5) K/mm3 Abs Monocytes (Manual) 1.91 H (0.1-0.90) K/mm3 Absolute Eos (Manual) 0.95 H (0.02-0.50) K/mm3 Abs Basophils (Manual) 2.86 H (0.0-0.1) K/mm3 Nucleated RBCs 2 % Platelet Estimate Adequate (Adequate) Schistocytes None seen Sodium 139 (137-145) mmol/L Potassium 3.4 (3.4-5.0) mmol/L Chloride 109 H (98-107) mmol/L Carbon Dioxide 24 (22-30) mmol/L Anion Gap 6 (4-12) mmol/L BUN 17 (9-20) mg/dL Creatinine 1.52 H (0.7-1.3) mg/dL Estim Creat Clear Calc 33 ml/min Estimated GFR 44 L (59 - ) Glucose 129 H (65-110) mg/dL Lactic Acid 1.2 (0.7-2.0) mmol/L Uric Acid 7.7 (3.5-8.5) mg/dL Calcium 9.0 (8.4-10.2) mg/dL Total Bilirubin 0.3 (0.2-1.3) mg/dL AST 38 (17-59) U/L ALT 15 (6-50) U/L Alkaline Phosphatase 45 (38-126) U/L Lactate Dehydrogenase 708 H (120-246) U/L Total Protein 6.4 (6.3-8.2) g/dL Albumin 3.4 L (3.5-5.1) g/dL Urine Color Dark yellow (Yellow) Urine Appearance Cloudy H (Clear) Urine pH 5.0 (5.0-9.0) Ur Specific [place] 1.023 (1.001-1.035) Urine Protein 1+ H (Negative) mg/dL Urine Glucose (UA) Negative (Negative) mg/dL Urine Ketones Trace H (Negative) mg/dL Ur Blood (Man) Negative (Negative) Urine Nitrate Negative (Negative) Urine Bilirubin 1+ H (Negative) Urine Urobilinogen 0.2 (<2.0) mg/dL Add Ur Microanalysis Reviewed Leukocyte Esterase Rfl 1+ H (Negative) MIGUEL/UL Urine RBC 0-2 (0-2) /hpf Urine WBC 21-50 H (0-3) /hpf Ur Squamous Epith Cells Moderate (Few) /hpf Urine Bacteria None seen /hpf Urine Casts >20 Hyaline Casts Present (None) /lpf Urine Mucus Present /lpf <Paul Bravo MD - Last Filed: 04/25/25 21:54> Lab Results 04/25/25 04/25/25 04/25/25 Range/Units 17:38 20:00 20:04 WBC 95.5 H* (4.5-10.0) K/mm3 RBC 3.79 L (4.6-6.20) M/mm3 Hgb 11.1 L D (14.0-18.0) g/dL Hct 34.8 L (42.0-52.0) % MCV 91.8 (80-100) fl MCH 29.3 (26-34) pg MCHC 31.9 L (32-36) g/dl RDW 17.6 H (11.5-14.5) % Plt Count 292 (150-375) k/mm3 MPV 10.1 (7.4-10.4) fl Immature Gran % (Auto) Not Reportable Neut % (Auto) Not Reportable Lymph % (Auto) Not Reportable [place] % (Auto) Not Reportable Eos % (Auto) Not Reportable Baso % (Auto) Not Reportable Lymph # (Auto) Not Reportable [place] # (Auto) Not Reportable Eos # (Auto) Not Reportable Baso # (Auto) Not Reportable Abs Immat Gran (auto) Not Reportable Absolute Neuts (auto) Not Reportable Absolute Nucleated RBC Not Reportable Total Counted 100 Neutrophils % (Manual) 51 (46-73) % Band Neutrophils % 26 H (0-6) % Lymphocytes % (Manual) 1 L (18-44) % Monocytes % (Manual) 2 L (3-9) % Eosinophils % (Manual) 1 (0-4) % Basophils % (Manual) 3 H (0-1) % Metamyelocytes % 8 % Myelocytes % 4 % Promyelocytes % (Man) 4 % Nucleated RBC % Not Reportable Abs Neuts (Manual) 73.53 H (1.3-6.7) K/mm3 Abs Lymphs (Manual) 0.95 L (1.1-4.5) K/mm3 Abs Monocytes (Manual) 1.91 H (0.1-0.90) K/mm3 Absolute Eos (Manual) 0.95 H (0.02-0.50) K/mm3 Abs Basophils (Manual) 2.86 H (0.0-0.1) K/mm3 Nucleated RBCs 2 % Platelet Estimate Adequate (Adequate) Schistocytes None seen Sodium 139 (137-145) mmol/L Potassium 3.4 (3.4-5.0) mmol/L Chloride 109 H (98-107) mmol/L Carbon Dioxide 24 (22-30) mmol/L Anion Gap 6 (4-12) mmol/L BUN 17 (9-20) mg/dL Creatinine 1.52 H (0.7-1.3) mg/dL Estim Creat Clear Calc 33 ml/min Estimated GFR 44 L (59 - ) Glucose 129 H (65-110) mg/dL Lactic Acid 1.2 (0.7-2.0) mmol/L Uric Acid 7.7 (3.5-8.5) mg/dL Calcium 9.0 (8.4-10.2) mg/dL Total Bilirubin 0.3 (0.2-1.3) mg/dL AST 38 (17-59) U/L ALT 15 (6-50) U/L Alkaline Phosphatase 45 (38-126) U/L Lactate Dehydrogenase 708 H (120-246) U/L Total Protein 6.4 (6.3-8.2) g/dL Albumin 3.4 L (3.5-5.1) g/dL Urine Color Dark yellow (Yellow) Urine Appearance Cloudy H (Clear) Urine pH 5.0 (5.0-9.0) Ur Specific [place] 1.023 (1.001-1.035) Urine Protein 1+ H (Negative) mg/dL Urine Glucose (UA) Negative (Negative) mg/dL Urine Ketones Trace H (Negative) mg/dL Ur Blood (Man) Negative (Negative) Urine Nitrate Negative (Negative) Urine Bilirubin 1+ H (Negative) Urine Urobilinogen 0.2 (<2.0) mg/dL Add Ur Microanalysis Reviewed Leukocyte Esterase Rfl 1+ H (Negative) MIGUEL/UL Urine RBC 0-2 (0-2) /hpf Urine WBC 21-50 H (0-3) /hpf Ur Squamous Epith Cells Moderate (Few) /hpf Urine Bacteria None seen /hpf Urine Casts >20 Hyaline Casts Present (None) /lpf Urine Mucus Present /lpf <Seth Hollingsworth MD - Last Filed: 04/26/25 00:19> Imaging Data Radiologist's impression: ITS Impressions Chest/Abdomen/Pelvis CT 04/25/25 21:18 IMPRESSION: 1. Bladder wall thickening, suspicious for cystitis versus L1 obstruction due to enlarged prostate gland. 2: Bilateral nonobstructing renal stones. Bladder stones. 3: Enlarged prostate gland. <Paul Bravo MD - Last Filed: 04/25/25 21:54> Discharge Plan Discharge Clinical Impression: CML (chronic myelocytic leukemia) <Paul Bravo MD - Last Filed: 04/25/25 21:54> Patient Disposition: Home <Paul Bravo MD - Last Filed: 04/25/25 21:54> Condition: Stable <Paul Bravo MD - Last Filed: 04/25/25 21:54> Instructions: Antibiotic Form, Chronic Myeloid Leukemia (DC) <Paul Bravo MD - Last Filed: 04/25/25 21:54> Additional Instructions: You were seen in the emergency department for an elevated white blood cell count. This is likely due to chronic myeloid leukemia. Please call Josephine Knight [phone] first thing monday morning to arrange follow up with Dr. Gibson or one of his associates next week. If you develop any new or worsening symptoms please return to the ED for re-evaluation. <Paul Bravo MD - Last Filed: 04/25/25 21:54> Patient Language: Kinyarwanda <Paul Bravo MD - Last Filed: 04/25/25 21:54> Prescriptions: No Action glucosamine-chondroitin 500-400 mg tablet 2 tablet PO DAILY aspirin 81 mg tablet,delayed release (DR/EC) 81 mg PO DAILY cholecalciferol (vitamin D3) 50 mcg (2,000 unit) capsule 50 mcg PO DAILY multivitamin Tablet 1 tablet PO DAILY vitamin B complex Tablet 1 tablet PO DAILY Saccharomyces boulardii [Daily Probiotic (S. boulardii)] 250 mg capsule 250 mg PO BID omeprazole 20 mg Capsule,Delayed Release(Dr/Ec) 20 mg PO DAILY cholestyramine (with sugar) 4 gram powder in packet 2 ea PO BID Patient Comments: 4g 2 pks lisinopril 5 mg tablet See Rx Instructions .ROUTE .COMPLEX Qty: 90 3RF Dose Instruction: TAKE 1 TABLET BY MOUTH DAILY Rx Instructions: TAKE 1 TABLET BY MOUTH DAILY tamsulosin 0.4 mg capsule See Rx Instructions .ROUTE .COMPLEX Qty: 180 3RF Dose Instruction: TAKE 1 CAPSULE BY MOUTH TWICE DAILY 1/2 HOUR FOLLOWING THE SAME MEALS OF EVERY DAY Rx Instructions: TAKE 1 CAPSULE BY MOUTH TWICE DAILY 1/2 HOUR FOLLOWING THE SAME MEALS OF EVERY DAY amlodipine 5 mg tablet See Rx Instructions .ROUTE .COMPLEX Qty: 90 3RF Dose Instruction: TAKE 1 TABLET BY MOUTH DAILY Rx Instructions: TAKE 1 TABLET BY MOUTH DAILY clopidogrel 75 mg tablet See Rx Instructions .ROUTE .COMPLEX Qty: 90 2RF Dose Instruction: TAKE 1 TABLET BY MOUTH DAILY Rx Instructions: TAKE 1 TABLET BY MOUTH DAILY fenofibrate 160 mg tablet See Rx Instructions .ROUTE .COMPLEX Qty: 90 2RF Dose Instruction: TAKE 1 TABLET BY MOUTH DAILY Rx Instructions: TAKE 1 TABLET BY MOUTH DAILY pravastatin 10 mg tablet See Rx Instructions .ROUTE .COMPLEX Qty: 90 3RF Dose Instruction: TAKE 1 TABLET BY MOUTH DAILY Rx Instructions: TAKE 1 TABLET BY MOUTH DAILY clorazepate dipotassium 7.5 mg tablet 15 mg PO Q12H PRN (Reason: anxiety) Qty: 120 2RF mesalamine 400 mg capsule (with del rel tablets) See Rx Instructions .ROUTE .COMPLEX Qty: 300 11RF Dose Instruction: TAKE 5 CAPSULES BY MOUTH TWICE A DAY Rx Instructions: TAKE 5 CAPSULES BY MOUTH TWICE A DAY <Paul Bravo MD - Last Filed: 04/25/25 21:54> Follow-up/Referrals: Yash Heard MD [Primary Care Provider, Internal Medicine] <Paul Bravo MD - Last Filed: 04/25/25 21:54>
[2025-04-26 00:28] VITALS: BP 130/80; PULSE 88; RESP 17; O2SAT 97
== END 2025-04-26 00:39 | disposition home or self-care (01) ==
PROVIDERS: Physician Assistant; Emergency Provider Family Medicine; PCP Emergency Medicine
DX: C92.10 Chronic myeloid leukemia, BCR/ABL-positive, not having achieved remission (principal); I10 Essential (primary) hypertension; H35.30 Unspecified macular degeneration; N40.0 Benign prostatic hyperplasia without lower urinary tract symptoms; M19.90 Unspecified osteoarthritis, unspecified site; K50.90 Crohn's disease, unspecified, without complications; K21.9 Gastro-esophageal reflux disease without esophagitis; F41.9 Anxiety disorder, unspecified; Z96.652 Presence of left artificial knee joint; Z87.442 Personal history of urinary calculi; Z87.440 Personal history of urinary (tract) infections; Z87.891 Personal history of nicotine dependence; Z90.49 Acquired absence of other specified parts of digestive tract; Z98.49 Cataract extraction status, unspecified eye; N20.0 Calculus of kidney; R93.41 Abnormal radiologic findings on diagnostic imaging of renal pelvis, ureter, or bladder
CPT/HCPCS: 36415; 71260; 74177; 80053; 81001; 83605; 83615; 84550; 85025; 99284; Q9967

== ENCOUNTER 2025-05-12 15:20 | Outpatient (CLI) | payer MEDICARE, BC, SELFPAY ==
--- NOTE | 2025-05-12 14:53 | CY_PTH ---
PATIENT: Jair Hardin Jr. LOC: [facility]#:[id number] AGE/SX: 79/M ROOM: RE05/12/[address]: Billy Timmons MD : 1945 BED: DIS: 05/12/2025 SPEC #: [id number] RECD: 05/13/25 10:27 STATUS: BATOOL REQ #: [id number] ALYSIA: 05/12/25 14:[address]: Billy Timmons DEPT: [facility] Cytology RECD BY: Shante Stevenson ENTERED: 05/13/25 10:29 SP TYPE: Cytology OTHR DR: Yash Heard MD Tissues: A - Flow Procedures: Flow Cytometry
--- OUTSIDE RECORDS SUMMARY | 2025-05-12 15:00 | XMS_ITS | Encounter Summary ---
Author Organization [facility] Address [address] [place] [address] Care Team Providers Care Critical Care Nurse Specialist Name Role Phone Yash Heard MD Primary Care Provider [phone] Reason for Referral * Laboratory Services (Routine) - Open Specialty Diagnoses / Procedures Referred By Contac t Referred To Contact Diagnoses Leukocytosis, unspecified type Procedures BCR/ABL1, QUANTITATIVE W/REFLEX Billy Timmons MD [address] [place] [address] Phone: tel: fax: Referral ID Status Reason Start Date Expiration Date Visits Re quested Visits Authorized [id number] Open 05/12/2025 06/12/2026 1 1 OLOGY TECHNICIAN Reason for Visit * Reason Comments Establish Care Encounter Details Date Type Department Care Team (Late st Contact Info) Description 05/12/2025 3:00 PM NEUROLOGY TECHNICIAN Office Visit [facility] Oncology and Hematology - [place] [address] [address] Billy Timmons MD [address] [place] [phone] Leukocytosis, unspecified type (Primary Dx) Social History Tobacco Use Types Packs/Day Years Used Date Smoking Tobacco: Former Cigarettes 1 20 1 07/12/1974 - 05/12/1995 Smokeless Tobacco: Never Tobacco Cessation:Counseling Given: Not Answered Alcohol Use Standard Drinks/Week Comments Never 0 (1 standard drink = 0.6 oz pur e alcohol) Sex and Gender Information Value Date Recorded Sex Assigned at Not on file Legal Sex Male 10:25 PM NEUROLOGY TECHNICIAN Gender Identity Not on file Sexual Orientation Not on file documented as of this encounter Last Filed Vital Signs Vital Sign Reading Time Taken Comments Blood Pressure 151/81 05/12/2025 2:51 PM NEUROLOGY TECHNICIAN Pulse 85 05/12/2025 2:48 PM NEUROLOGY TECHNICIAN Temperature 36.3 C (97.4 F) 05/12/2025 2:48 PM NEUROLOGY TECHNICIAN Respiratory Rate 16 05/12/2025 2:48 PM NEUROLOGY TECHNICIAN Oxygen Saturation 97% 05/12/2025 2:48 PM NEUROLOGY TECHNICIAN Inhaled Oxygen Concentration - - Weight 78.4 kg (172 lb 12.8 oz) 05/12/2025 2:48 PM NEUROLOGY TECHNICIAN Height 170.2 cm (5' 7) 05/12/2025 2:48 PM NEUROLOGY TECHNICIAN Body Mass Index 27.06 05/12/2025 2:48 PM NEUROLOGY TECHNICIAN documented in this encounter Progress Notes * Billy Timmons MD - 05/12/2025 3:33 PM CST Hematology-oncology consult Note Requesting Physician Yash Heard MD Primary Care Physician Yash Heard MD Problem list There is no problem list on file for this patient. Previous TREATMENT ? Measurable Disease ? Reason for Visit Jair Hardin is a 79 y.o. male who was referred for consultation for leukocytosis. History of present illness This is a 79-year-old male with history of hypertension, TIA and hyperlipidemia along with history of chron's disease had labs done by gastroenterology service that showed elevated WBC count and was sent to the ER on April 25, 2025. He has no previous history of malignancy. He denies any melena hematochezia but has occasional diarrhea. Denies any new lumps bumps and lymphadenopathy. Denies any fever chills and night sweats. He has lost 15 pound weight in 2 months. He has poor appetite. He has been dealing with some dysuria and UTI for several months and has completed 4 rounds of antibiotic treatment. He has appointment with the urology on May 27. Labs done in the ER on er 7 showed WBC count of 95.5 with hemoglobin of 11.1. Patient had CT scan chest abdomen and pelvisdone on N7 that showed bladder wall thickening suspicious for cystitis and enlarged prostate. Flow cytometric analysis was also performed that showed absolute neutrophilia with marked left shift and immature forms. Myeloblasts were present and appears to be less than 20% with associated basophilia and monocytosis. He denies any other complaints. Past Medical History Past Medical History: Diagnosis Date Acute Crohn's disease (CMS/HCC) Hyperlipidemia Hypertension Malignant neoplasm (CMS/HCC) Surgical History Past Surgical History: Procedure Laterality Date HX CHOLECYSTECTOMY HX HERNIA REPAIR HX KNEE REPLACEMENT, TOTAL HX SHOULDER SURGERY Medications Current Outpatient Medications Medication Sig Dispense Refill amLODIPine (NORVASC) 5 mg tablet Take 5 mg by mouth daily. clopidogreL (PLAVIX) 75 mg Tablet Take 75 mg by mouth daily. lisinopriL (PRINIVIL) 5 mg tablet Take 5 mg by mouth 2 times daily. pravastatin (PRAVACHOL) 10 mg tablet Take 10 mg by mouth daily. cholecalciferol (VITAMIN D3) 400 unit Tablet Take 400 Units by mouth daily. aspirin (CHASITY CHEWABLE) 81 mg Tablet, Chewable Take 81 mg by mouth daily. cholestyramine, with sugar, (QUESTRAN) 4 gram Powder in Packet Take 4 Grams by mouth 2 times daily. clorazepate (TRANXENE) 7.5 mg tablet Take 7.5 mg by mouth 4 times daily. fenofibrate (LOFIBRA) 160 mg Tablet Take 160 mg by mouth daily. glucosamine chavez 2KCl-chondroit 500-400 mg Tablet Take 1 Tablet by mouth daily. mesalamine (PENTASA) 500 mg Extended Release capsule Take 2,000 mg by mouth 2 times daily. omeprazole (PriLOSEC) 20 mg Capsule, Delayed Release(E.C.) Take 20 mg by mouth daily before breakfast. tamsulosin (FLOMAX) 0.4 mg capsule Take 0.4 mg by mouth. No current facility-administered medications for this visit. Allergies Allergies Allergen Reactions Diphtheria,Pertussis(Acell),Tetanus Pedi Vaccine Nausea and Vomiting Immunizations: There is no immunization history on file for this patient. Family History Family History Problem Relation Name Age of Onset No Known Problems Father Breast Cancer Mother No Known Problems Child No Known Problems Child No Known Problems Sister No Known Problems Sister Heart Disease Sister No Known Problems Half-Brother Social History Social History Tobacco Use Smoking status: Former Current packs/day: 0.00 Average packs/day: 1 pack/day for 20.0 years (20.0 ttl pk-yrs) Types: Cigarettes Start date: 05/12/1975 Quit date: 05/12/1995 Years since quittin.0 Smokeless tobacco: Never Substance Use Topics Alcohol use: Never Review of Systems Constitutional: Patient did not mention fever; no night sweats; no anorexia; no weight loss; no fatique NEENT: Patient did not mention headache; no change in vision; no change in hearing; no sore throat;no dysphagia Respiratory: Patient did not mention shortness of breath; no pleuritic chest pain; no cough; no hemoptysis Cardiac: Patient did not mention cardiac-like chest pain; no palpitations; no orthopnea; no PND; noDOE GI: Patient did not mention abdominal pain; no nausea; no vomiting; no diarrhea; no hematochezia; no melena : Patient did not mention dysuria; no frequency; no hesitancy; no hematuria LEADERSHIP DEVELOPMENT CONSULTANT: Musculosketetal: Patient did not mention bone pain; no arthralgia; no joint swelling; no myalgia; Skin: Patient did not mention pruritis; no rash; no petechiae; no ecchymoses Endocrine: Patient did not mention polydipsia; no polyuria; no unusual weight gain Neuro: Patient did not mention headache; no change in vision; no sensory changes; no muscle weakness; no confusion; no seizures Psych: Patient did not mention anxiety; no depression; Physical Exam Vitals: As per nursing note Constitutional: Well developed, well nourished, no acute distress, non-toxic appearance Teeth and gum. No signs of infection or swelling. Eyes: PERRL, conjunctiva normal HEENT: Atraumatic, external ears normal, nose normal, oropharynx moist, no pharyngeal exudates. no sinus tenderness Neck- normal range of motion, no tenderness, supple Respiratory: No respiratory distress, normal breath sounds, no rales, no wheezing Cardiovascular: Normal rate, normal rhythm, no murmurs, no gallops, no rubs GI: Soft, nondistended, normal bowel sounds, nontender, no splenomegaly, no hepatomegaly, no mass, no rebound, no guarding : No costovertebral angle tenderness Musculoskeletal: No edema, no tenderness, no deformities. Back- no tenderness Integument: Well hydrated, no rash, Digits and nails inspection normal Lymphatic: No lymphadenopathy noted Neurologic: Alert & oriented x 3, CN 2-12 normal, normal motor function, normal sensory function, no focal deficits noted Psychiatric: Speech and behavior appropriate ? labs No results found for this or any previous visit (from the past 24 hours). Pathology ? Imaging & Other Studies Performance Status? Assessment / Plan: ? Leukocytosis. Patient is 79-year-old male with history of Crohn disease, hypertension, hyperlipidemia and TIA was incidentally found to have elevated WBC count of more than 100,000 when thelabs were done by the gastroenterology service. He denies any night sweats fevers and chills. He has lost 15 pound weight with a poor appetite. I have reviewed the labs and the flow cytometric analysis done on April 25 that showed less than 20% myeloblast along with basophilia, monocytosis and eosinophilia with findings suggestive of leukemoid reaction versus myelodysplastic syndrome. I am worried about chronic myelogenous leukemia. I will order the BCR-ABL PCR testing as well as CBC with differential, CMP, C-reactive protein, sedimentation rate and repeat flow cytometric analysis. No need for bone marrow biopsy testing at this time. I will see him back in 2 weeks and discussed the labs and further management. I have answered all questions to patient and the daughter satisfaction. History of TIA. Stable on Plavix. Recurrent UTI. Patient has appointment for cystoscopy on May 27. Hyperlipidemia. Patient is on pravastatin. Hypertension. Patient is on amlodipine and lisinopril. Thank you very much for allowing me to participate in Jair Hardin's evaluation and management. Please feel free to contact if I can be of any further assistance in your patient???s care requiringhematology or oncology evaluation. Sincerely, ? ? Billy Timmons M.D. cell TOBACCO COUNSELING He is not a tobacco/nicotine user. Billy Timmons MD ,05/12/2025 3:33 PM ? Total time spent 60 minutes, two third of the total time spent counseling patient [id number]. CC:?Yash Heard MD OLOGY TECHNICIAN documented in this encounter Plan of Treatment Upcoming Encounters Date Type Department Care Team (Late st Contact Info) Description 05/28/2025 4:30 PM NEUROLOGY TECHNICIAN Telephone Check Up [facility] Oncology and Hematology - [place] [address] [place] [address] Billy Timmons MD [address] [facility] [address] [place] [address] Scheduled Orders Name Type Priority Associated Diagnoses Orde r Schedule CBC WITH DIFFERENTIAL Lab Stat Leukocytosis, unspecified type Expected: 05/12/2025, Expires: 05/12/2026 COMPREHENSIVE METABOLIC PANEL Lab Stat Leukocytosis, unspecified type Expected: 05/12/2025, Expires: 05/12/2026 BCR/ABL1, QUANTITATIVE W/REFLEX Lab Routine Leukocytosis, unspecified type Expected: 05/12/2025, Expires: 05/12/2026 FLOW CYTOMETRY PANEL Lab Routine Leukocytosis, unspecified type Expected: 05/12/2025, Expires: 05/12/2026 C-REACTIVE PROTEIN Lab Routine Leukocytosis, unspecified type Expected: 05/12/2025, Expires: 05/12/2026 SEDIMENTATION RATE Lab Routine Leukocytosis, unspecified type Expected: 05/12/2025, Expires: 05/12/2026 documented as of this encounter Visit Diagnoses Diagnosis Leukocytosis, unspecified type- Primary documented in this encounter Care Teams Critical Care Nurse Specialist Relationship Specialty Start Date End Date Yash Heard MD [address] [place] [id number] PCP - General Internal Medicine 05/12/25 documented as of this encounter
[2025-05-12 15:40] LABS: Hematocrit 35.2 % (42.0-52.0); Hemoglobin 11.1 g/dL (14.0-18.0); Immature Granulocyte Percent A 25.1 % (0-0.5); Lymphocytes Absolute Auto 2.13 K/mm3 (0.9-3.2); Mean Corpuscular HGB Conc 31.5 g/dl (32-36); Mean Corpuscular Hemoglobin 29.1 pg (26-34); Mean Corpuscular Volume 92.4 fl (80-100); Nucleated Red Blood Cells Absolute Auto 0.490 K/mm3 (0.0-0.012); Nucleated Red Blood Cells Perc 0.7 % (0.0-0.2); Platelet Count Result 393 k/mm3 (150-375); Red Blood Count 3.81 M/mm3 (4.6-6.20)
[2025-05-12 15:45] LABS: White Blood Count 71.5 K/mm3 (4.5-10.0)
[2025-05-12 15:46] LABS: Schistocytes None Seen
[2025-05-12 15:49] LABS: Anisocytosis 1+
[2025-05-12 16:34] LABS: Alanine Aminotransferase 17 U/L (6-50); Albumin Level 4.0 g/dL (3.5-5.1); Alkaline Phosphatase 64 U/L (38-126); Anion Gap 7 mmol/L (4-12); Aspartate Amino Transferase 48 U/L (17-59); Bilirubin,Total 0.6 mg/dL (0.2-1.3); Blood Urea Nitrogen 14 mg/dL (9-20); CRP < 0.5 mg/dL (<1.0); Calcium 9.5 mg/dL (8.4-10.2); Carbon Dioxide 25 mmol/L (22-30); Chloride 107 mmol/L (98-107); Estimated Glomerular Filt Rate 53; Glucose 84 mg/dL (65-110); Potassium 3.4 mmol/L (3.4-5.0); Sodium 139 mmol/L (137-145); Total Protein 7.3 g/dL (6.3-8.2)
--- OUTSIDE RECORDS SUMMARY | 2025-05-12 17:59 | XMS_ITS | Clinical Summary ---
Author Organization [email or web address] Address [address] [place] [address] Care Team Providers Care Powder Expert Name Role Phone Yash Heard MD Primary Care Provider [phone] Source Comments [email or web address],non-owned Affiliates and Associated Physician Practices is amultiple site organization consisting of ambulatory clinics and hospital sitesin [place], [place], [place] and [place]. This disclosure is being madepursuant to the Care Everywhere program and may not contain all information available regarding this patient. Last updated [email or web address] Allergies Active Allergy Reactions Criticality Noted Date [...] on file Legal Sex Male 10:28 AM COMMUNITY SERVICE TECHNICIAN Gender Identity Not on file Sexual Orientation Not on file Last Filed Vital Signs Vital Sign Reading Time Taken Comments Blood Pressure 133/79 06/03/2021 10:38 AM COMMUNITY SERVICE TECHNICIAN Pulse 89 06/03/2021 10:38 AM COMMUNITY SERVICE TECHNICIAN Temperature 36.5 C (97.7 F) 06/03/2021 10:38 AM COMMUNITY SERVICE TECHNICIAN Respiratory Rate 14 05/16/2021 8:16 AM COMMUNITY SERVICE TECHNICIAN Oxygen Saturation 98% 06/03/2021 10:38 AM COMMUNITY SERVICE TECHNICIAN Inhaled Oxygen Concentration - - Weight 84.8 kg (187 lb) 06/03/2021 10:38 AM COMMUNITY SERVICE TECHNICIAN Height 170.2 cm (5' 7) 06/03/2021 10:38 AM COMMUNITY SERVICE TECHNICIAN Body Mass Index 29.29 06/03/2021 10:38 AM COMMUNITY SERVICE TECHNICIAN Plan of Treatment Health Maintenance Due Date Last Done Comments MEDICARE AWV 12 MONTHS 1945 DTAP/TDAP/TD VACCINES (1 - Tdap) 1962 PNEUMOCOCCAL VACCINE 50+ (1 of 1 - PCV) 1993 ZOSTER VACCINE (1 of 2) 1993 Respiratory Syncytial Virus (RSV) Vaccine Pt: or over 60 yrs (1 - 1-dose 75+ series) 2018 DEPRESSION SCREENING 06/19/2024 COVID-19 VACCINE (1 - 2024-2 6 season) 2025 INFLUENZA VACCINE (#1) 2025 HEPATITIS [...] age to complete this topic Insurance MEDICARE [facility] MEDICARE [facility] SELF PAY NO INSURANCE Member Subscriber Plan / Payer (Ef fective for All Dates) Name:Estefany Cedeño Jr Member ID:Not on file Relation to Subscriber:Not on file Name:ESTEFANY CEDEÑO JR Subscriber ID:Not on file (Home) Address: [address] [place] [phone] Payer ID:Not on file Group ID:Not on file Type:Self Pay Address: [place], [place] [employer] PARTY LIABILITY MEDICARE ANTH Advance Directives * Full Code (Latest Code Status on File) Date Activated Date Inactivated Comments 05/12/2021 2:41 AM 05/16/2021 4:03 PM Care Teams Powder Expert Relationship Specialty Start Date End Date Yash Heard MD [address] [place] [address] PCP - General 08/23/18
--- OUTSIDE RECORDS SUMMARY | 2025-05-12 17:59 | XMS_ITS | Clinical Summary ---
Author Organization [employer] [facility] [employer] Address [address] [place] [address] Care Team Providers Care Trade Show Coordinator Name Role Phone Yash Heard MD Primary Care Provider [phone] Allergies Active Allergy Reactions Criticality Noted Date Comments Diphtheria,Pertussis(Acell), Tetan us Pedi Vaccine Nausea and Vomiting Low 04/30/2019 Medications amLODIPine (NORVASC) 5 mg tablet Take 5 mg by mouth daily. 03/28/2025 Active cholecalciferol (VITAMIN D3) 400 unit Tablet Take 400 Units by mouth daily. Active aspirin (CHASITY CHEWABLE) 81 mg Tablet, Chewable Take 81 mg by mouth daily. Active cholestyramine, with sugar, (QUESTRAN) 4 gram Powder in Packet Take 4 Grams by mouth 2 times daily. Active clopidogreL (PLAVIX) 75 mg Tablet Take 75 mg by mouth daily. 04/17/2025 Active clorazepate (TRANXENE) 7.5 mg tablet Take 7.5 mg by mouth 4 times daily. Active fenofibrate (LOFIBRA) 160 mg Tablet Take 160 mg by mouth daily. Active glucosamine chavez 2KCl-chondroit 500-400 mg Tablet Take 1 Tablet by mouth daily. Active lisinopriL (PRINIVIL) 5 mg tablet Take 5 mg by mouth 2 times daily. 03/28/2025 Active mesalamine (PENTASA) 500 mg Extended Release capsule Take 2,000 mg by mouth 2 times daily. Active omeprazole (PriLOSEC) 20 mg Capsule, Delayed Release(E.C.) Take 20 mg by mouth daily before breakfast. Active pravastatin (PRAVACHOL) 10 mg tablet Take 10 mg by mouth daily. 03/03/2025 Active tamsulosin (FLOMAX) 0.4 mg capsule Take 0.4 mg by mouth. Active Active Problems No known active problems Encounters Date Type Department Care Team Description 05/12/2025 3:00 PM SMELTER LINER Office Visit [facility] Oncology and Hematology - [place] [address] [place] [address] Billy Timmons MD Leukocytosis, unspecified type (Primary Dx) from Last 3 Months Family History Medical History Relation Name Comments No Known Problems Child 1 No Known Problems Child 2 No Known Problems Father No Known Problems Half-Brother Breast Cancer Mother No Known Problems Sister 1 No Known Problems Sister 2 Heart Disease Sister 3 Relation Name Status Comments Child 1 Child 2 Alive Father Half-Brother Alive Mother Sister 1 Sister 2 Sister 3 Social History Tobacco Use Types Packs/Day Years Used Date Smoking Tobacco: Former Cigarettes 1 20 1 07/12/1974 - 05/12/1995 Smokeless Tobacco: Never Tobacco Cessation:Counseling Given: Not Answered Alcohol Use Standard Drinks/Week Comments Never 0 (1 standard drink = 0.6 oz pur e alcohol) Sex and Gender Information Value Date Recorded Sex Assigned at Not on file Legal Sex Male 10:25 PM SMELTER LINER Gender Identity Not on file Sexual Orientation Not on file Last Filed Vital Signs Vital Sign Reading Time Taken Comments Blood Pressure 151/81 05/12/2025 2:51 PM SMELTER LINER Pulse 85 05/12/2025 2:48 PM SMELTER LINER Temperature 36.3 C (97.4 F) 05/12/2025 2:48 PM SMELTER LINER Respiratory Rate 16 05/12/2025 2:48 PM SMELTER LINER Oxygen Saturation 97% 05/12/2025 2:48 PM SMELTER LINER Inhaled Oxygen Concentration - - Weight 78.4 kg (172 lb 12.8 oz) 05/12/2025 2:48 PM SMELTER LINER Height 170.2 cm (5' 7) 05/12/2025 2:48 PM SMELTER LINER Body Mass Index 27.06 05/12/2025 2:48 PM SMELTER LINER Plan of Treatment Upcoming Encounters Date Type Department Care Team (Late st Contact Info) Description 05/28/2025 4:30 PM SMELTER LINER Telephone Check Up [facility] Oncology and Hematology [place] [address] [place] [address] Billy Timmons MD [address] [place] [address] Health Maintenance Due Date Last Done Comments DTAP/TDAP/TD VACCINES (1 - Tdap) 1962 Traditional Medicare (ACO) Annual Wellness Visit 08/14 PNEUMOCOCCAL VACCINE 50+ YEARS (1 of 1 - PCV) 08/14/18 94 ZOSTER VACCINE (1 of 2) 1993 RSV VACCINE (60+ or ) (1 - 1-dose 75+ series) 2018 INFLUENZA VACCINE (#1) 2025 Insurance MEDICARE PART A AND B [employer] PPO Care Teams Trade Show Coordinator Relationship Specialty Start Date End Date Yash Heard MD [address] [place] [address] PCP - General Internal Medicine 05/12/25
--- OUTSIDE RECORDS SUMMARY | 2025-05-12 17:59 | XMS_ITS | Clinical Summary ---
Author Organization [facility] Address [address] [place] [address] Care Team Providers Care Electrical Engineering Director Name Role Phone None, Provider MD Primary Care Provider Unavaila ble None, Provider MD Unavailable Unavailable Allergies Active Allergy Reactions Criticality Noted Date Comments Lcyxakl-Agcmyp-Fxzas Pertussis Nausea and Vomiting 04/30/2019 Medications mesalamine [...] CDT - 04/12/2025 11:09 AM CDT Emergency [facility] Emergency Room [address] [place] [address] Mike Gonzalez MD Urinary Frequency Discharge Disposition: [...] Procedure Name Priority Date/Time Associated Diagnosis Comments HC URINALYSIS AUTO W/MICRO STAT 04/12/2025 10:00 AM CDT from Last 3 Months Results * (ABNORMAL) Urinalysis, Auto, Complete (04/12/2025 10:00 AM CDT) COLOR (U) YELLOW 04/12/2025 10:14 AM CDT [facility] TRANSPARENCY CLEAR 04/12/2025 10:14 AM CDT [facility] SPECIFIC GRAVITY (U) 1.025 1.000 - 1.030 04/12/2025 10:14 AM CDT [facility] U PH 6.0 5.0 - 9.0 04/12/2025 10:14 AM CDT [facility] LEUKOCYTES (U) TRACE(A) NEGATIVE 04/12/2025 10:14 AM CDT [facility] NITRITES NEGATIVE NEGATIVE 04/12/2025 10:14 AM CDT [facility] PROTEIN RANDOM (U) 3+(A) NEGATIVE 04/12/2025 10:14 AM CDT [facility] GLUCOSE (U) NEGATIVE NEGATIVE 04/12/2025 10:14 AM CDT [facility] KETONES MG/DL (U) NEGATIVE NEGATIVE 04/12/2025 10:14 AM CDT [facility] BILIRUBIN (U) NEGATIVE NEGATIVE 04/12/2025 10:14 AM CDT [facility] BLOOD (U) 2+(A) NEGATIVE 04/12/2025 10:14 AM CDT [facility] WBC/HPF 5-10 0 - 5 /HPF 04/12/2025 10:14 AM CDT [facility] RBC/HPF 5-10 0 - 5 /HPF 04/12/2025 10:14 AM CDT [facility] EPI/HPF MODERATE /HPF 04/12/2025 10:14 AM CDT [facility] BACTERIA (U) FEW /HPF 04/12/2025 10:14 AM CDT [facility] URINE SPECIMEN OBTAINED BY CLEAN CATCH PROCEDURE / Unknown 04/12/2025 10:00 AM CDT us Mike Gonzalez MD URINE ORDERABLES Final Result [facility] [address] [place] [address], [place] [phone] from Last 3 Months Insurance MEDICARE [facility] MEDICARE [facility] MEDICARE [facility] Care Teams Electrical Engineering Director Relationship Specialty Start Date End Date None, ProviderMD PCP - General 05/11/21 None, MD Tash 05/11/21
== END 2025-05-12 15:21 | disposition home or self-care (01) ==
PROVIDERS: PCP Emergency Medicine; Visit Provider Internal Medicine Hematology & Oncology
DX: D72.829 Elevated white blood cell count, unspecified (principal)
CPT/HCPCS: 36415; 80053; 85025; 85652; 86140; 88184

== ENCOUNTER 2025-06-02 13:04 | Outpatient (CLI) | payer MEDICARE, BC, SELFPAY ==
[2025-06-02 17:48] LABS: INR 1.1; Prothrombin Time 14.5 Seconds (11.1-14.7)
[2025-06-02 17:49] LABS: Partial Thromboplastin Time 32.5 Seconds (22.3-36.8)
== END 2025-06-02 13:05 | disposition home or self-care (01) ==
PROVIDERS: PCP Emergency Medicine; Visit Provider Urology
DX: N18.4 Chronic kidney disease, stage 4 (severe) (principal); Z01.818 Encounter for other preprocedural examination
CPT/HCPCS: 36415; 85610; 85730

== ENCOUNTER 2025-06-13 06:09 | Outpatient (CLI) | payer MEDICARE, BC, SELFPAY ==
--- OUTSIDE RECORDS SUMMARY | 2025-06-13 06:12 | XMS_ITS | Clinical Summary ---
Author Organization [facility] Address [address] [place] [address] Care Team Providers Care Knowledge Analyst Name Role Phone None, Provider MD Primary Care Provider Unavaila ble None, Provider MD Unavailable Unavailable Allergies Active Allergy Reactions Criticality Noted Date Comments Tbhltjq-Tftehp-Tpava Pertussis Nausea and Vomiting 04/30/2019 Medications mesalamine [...] 20 mg by mouth daily. Active multi vitamin/minerals (MULTI-VITAMIN DAILY) tablet Take 1 tablet by mouth daily. Active Misc Natural Products (LUTEIN 20 OR) Active B Complex-C Tab tablet Take 1 tablet by mouth daily. Active Lactobacillus (PROBIOTIC ACIDOPHILUS OR) Take by mouth daily. Active vitamin D3, cholecalciferol, (VITAMIN D-3) 10 MCG (400 UNIT) tablet Take 400 Units by mouth daily. Active predniSONE 10 mg tablet 2 tablets PO BID x 4 days, then 1 tablet PO BID x 4 days, then 1 tablet daily x 4 days. 32 tablet 9 Active traMADol (ULTRAM) 50 MG tabletIndication s:Acute Pain < 7 Day Supply Take 1 tablet (50 mg total) by mouth every 6 (six) hours as needed. Indications: Acute Pain < 7 Day Supply 15 tablet Active REEMA James, (MEDROL DOSEPAK) 4 MG tablet Take 1 tablet (4 mg total) by mouth 2 (two) times daily. Follow package directions 1 each Active famotidine (PEPCID) 20 MG tablet Take 1 tablet (20 mg total) by mouth 2 (two) times daily. 20 tablet Active naloxone (NARCAN) 4 MG/0.1ML nasal spray 1 spray by Nasal route as needed for Opioid reversal. may repeat every 2 to 3 minutes in alternating nostrils until medical assistance becomes available 1 each 04/12/20 Active Encounters Date Type Department Care Team Description 04/12/2025 9:43 AM CDT - 04/12/2025 11:09 AM CDT Emergency [facility] Emergency Room [address] [place] [address] Mike Gonzalez MD Urinary Frequency Discharge Disposition: [...] Average Number of Drinks Not on file Frequency of Binge Drinking Not on file [...] COLOR (U) YELLOW 04/12/2025 10:14 AM CDT [facility] TRANSPARENCY CLEAR 04/12/2025 10:14 AM CDT [facility] SPECIFIC GRAVITY (U) 1.025 1.000 - 1.030 04/12/2025 10:14 AM CDT [facility] U PH 6.0 5.0 - 9.0 04/12/2025 10:14 AM CDT [facility] LEUKOCYTES (U) TRACE(A) NEGATIVE 04/12/2025 10:14 AM CDT [facility] NITRITES NEGATIVE NEGATIVE 04/12/2025 10:14 AM CDT [facility] PROTEIN RANDOM (U) 3+(A) NEGATIVE 04/12/2025 10:14 AM CDT [facility] GLUCOSE (U) NEGATIVE NEGATIVE 04/12/2025 10:14 AM CDT [facility] KETONES MG/DL (U) NEGATIVE NEGATIVE 04/12/2025 10:14 AM CDT [facility] BILIRUBIN (U) NEGATIVE NEGATIVE 04/12/2025 10:14 AM CDT [facility] BLOOD (U) 2+(A) NEGATIVE 04/12/2025 10:14 AM CDT [facility] WBC/HPF 5-10 0 - 5 /HPF 04/12/2025 10:14 AM CDT [facility] RBC/HPF 5-10 0 - 5 /HPF 04/12/2025 10:14 AM CDT [facility] EPI/HPF MODERATE /HPF 04/12/2025 10:14 AM CDT [facility] BACTERIA (U) FEW /HPF 04/12/2025 10:14 AM T [facility] URINE SPECIMEN OBTAINED BY CLEAN CATCH PROCEDURE / Unknown 04/12/2025 10:00 AM CDT us Mike Gonzalez MD URINE ORDERABLES Final Result [facility] [id number] [address] [address], [place] [phone] from Last 3 Months Insurance MEDICARE [facility] [place] MEDICARE [facility] MEDICARE [facility] Care Teams Knowledge Analyst Relationship Specialty Start Date End Date None, ProviderMD PCP - General 05/11/21 None, MD Tash 05/11/21
--- OUTSIDE RECORDS SUMMARY | 2025-06-13 06:13 | XMS_ITS ---
Author Organization [facility] Address [address] [place] [address] Care Team Providers Care Plastics Tooling Engineer Name Role Phone Yash Heard MD Primary Care Provider [phone] Chronic Myeloid Leukemia Status:Enrolled (Active) Start date:05/29/2025 Enrollment date:05/29/2025 Current support & services provided:Clinical Management, Refill Management, Benefits and PA Management Linked medications:imatinib mesylate (Active) Continued Care and Services Coordination
--- OUTSIDE RECORDS SUMMARY | 2025-06-13 06:13 | XMS_ITS | Clinical Summary ---
Author Organization [facility] Address [address] [place] [address] Phone Care Team Providers Care Strategy Planning Consultant Name Role Phone Yash Heard MD Primary Care Provider [phone] Allergies Active Allergy Reactions Criticality Noted Date Comments Wlhzzik-Mcpyuk-Kskuo Pertussis Nausea And Vomiting 04/30/2019 Medications B [...] Comments Blood Pressure 122/72 07/05/2021 10:00 AM MUD ANALYSIS WELL LOGGING CAPTAIN Pulse 84 07/05/2021 10:00 AM MUD ANALYSIS WELL LOGGING CAPTAIN Temperature 35.5 C (95.9 F) 07/05/2021 10:00 AM MUD ANALYSIS WELL LOGGING CAPTAIN Respiratory Rate - - Oxygen Saturation - - Inhaled Oxygen Concentration - - Weight 85.7 kg (189 lb) 07/05/2021 10:00 AM MUD ANALYSIS WELL LOGGING CAPTAIN Height 167.6 cm (5' 6) 07/05/2021 10:00 AM MUD ANALYSIS WELL LOGGING CAPTAIN Body Mass Index 30.51 07/05/2021 10:00 AM MUD ANALYSIS WELL LOGGING CAPTAIN Plan of Treatment Health Maintenance Due Date Last Done Comments Pneumococcal PPSV23/PCV13 65 + Years / Low and Medium Risk (1 of 2 - PCV) 1993 Influenza Vaccine (#1) 2025 Insurance MEDICARE [facility] Care Teams Strategy Planning Consultant Relationship Specialty Start Date End Date Yash Heard MD [address] [place] [phone] PCP - General Internal Medicine 02/03/20
--- OUTSIDE RECORDS SUMMARY | 2025-06-13 06:13 | XMS_ITS | Clinical Summary ---
Author Organization [facility] Address 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 Active imatinib (Gleevec) 400 mg tablet Take 1 Tablet (400 mg) by mouth daily with breakfast. 30 Tablet 4 05/30/2025 11:36 AM RN ONCOLOGY 05/28/2025 Active Active Problems No known active problems Encounters Date Type Department Care Team Description 06/03/2025 External Device Data STL ABSTRACTION Provider, Abstract 05/29/2025 Specialty Pharmacy [facility] [address] [place] [address] [place] [address] Loree Gonzalez, PHARMACIST 05/29/2025 Specialty Pharmacy [facility] [address] [place] [address] [place] [address] Loree Gonzalez, PHARMACIST 05/28/2025 4:30 PM RN ONCOLOGY Telephone Check Up [facility] Oncology and Hematology [facility] [address] [place] [address] Billy Timmons MD CML (chronic myelocytic leukemia) ([facility]/HCC) (Primary Dx) 05/23/2025 Orders Only [facility] Oncology and Hematology [facility] [address] [place] [address] Billy Timmons MD 05/20/2025 Orders Only [facility] Oncology and Hematology [facility] [address] [place] [address] Billy Timmons MD 05/13/2025 External Device Data STL ABSTRACTION Provider, Abstract 05/13/2025 External Device Data STL ABSTRACTION Provider, Abstract 05/13/2025 External Device Data STL ABSTRACTION Provider, Abstract 05/13/2025 Orders Only [facility] Oncology and Hematology - [place] [address] [place] [id number] Billy Timmons MD 05/12/2025 3:00 PM RN ONCOLOGY Office Visit [facility] Oncology and Hematology [facility] [address] [place] [address] Billy Timmons MD Leukocytosis, unspecified type (Primary [...] on file Legal Sex Male 10:25 PM RN ONCOLOGY Gender Identity Not on file Sexual Orientation Not on file Last Filed Vital Signs Vital Sign Reading Time Taken Comments Blood Pressure 151/81 05/12/2025 2:51 PM RN ONCOLOGY Pulse 85 05/12/2025 2:48 PM RN ONCOLOGY Temperature 36.3 C (97.4 F) 05/12/2025 2:48 PM RN ONCOLOGY Respiratory Rate 16 05/12/2025 2:48 PM RN ONCOLOGY Oxygen Saturation 97% 05/12/2025 2:48 PM RN ONCOLOGY Inhaled Oxygen Concentration - - Weight 78.4 kg (172 lb 12.8 oz) 05/12/2025 2:48 PM RN ONCOLOGY Height 170.2 cm (5' 7) 05/12/2025 2:48 PM RN ONCOLOGY Body Mass Index 27.06 05/12/2025 2:48 PM RN ONCOLOGY Plan of Treatment Upcoming Encounters Date Type Department Care Team (Late st Contact Info) Description 07/16/2025 2:30 PM RN ONCOLOGY Office Visit [facility] Oncology and Hematology - [place] [address] [facility] [address] [place] [address] Billy Timmons MD [address] [facility] [address] [place] [address] Health Maintenance Due Date Last Done Comments DTAP/TDAP/TD VACCINES (1 - Tdap) 1962 PNEUMOCOCCAL VACCINE 50+ YEARS (1 of 1 - PCV) 08/14/18 94 ZOSTER VACCINE (1 of 2) 1993 RSV VACCINE (60+ or ) (1 - 1-dose 75+ series) 2018 INFLUENZA VACCINE (#1) 2025 Procedures Procedure Name Priority Date/Time Associated Diagnosis Comments FLOW CYTOMETRY REPORT Routine 05/13/2025 9:13 AM RN ONCOLOGY COMPREHENSIVE METABOLIC PANEL Routine 05/12/2025 11:27 AM RN ONCOLOGY BCR/ABL DIAGNOSTIC ASSAY W/REFLEX Routine 05/12/2025 11:13 AM RN ONCOLOGY from Last 3 Months Results * FLOW CYTOMETRY REPORT (05/13/2025 9:13 AM RN ONCOLOGY) us Billy Timmons MD PATHOLOGY/CYTOLOGY ORDERABLES F inal Result * COMPREHENSIVE METABOLIC PANEL (05/12/2025 11:27 AM RN ONCOLOGY) Blood us Billy Timmons MD CHEMISTRY ORDERABLES Final Resu lt * BCR/ABL DIAGNOSTIC ASSAY W/REFLEX (05/12/2025 11:13 AM RN ONCOLOGY) us Billy Timmons MD BODY FLUIDS AND STOOLS COM Romy l Result from Last 3 Months Insurance MEDICARE PART A AND B [employer] BLUE ACCESS/TRUE AMEE PPO RX [employer] RX Member Subscriber Plan / Payer (Ef fective 2025-Present) Name:Jair Hardin Jr. Relation to Subscriber:Self Name:Jair Hardin Jr. Payer ID:Not on file Group ID:[id number] Type:RX Medicare Part D Address: [place] Care Teams Piercing Mill Operator Relationship Specialty Start Date End Date Yash Heard MD [address] [place] [address] PCP - General Internal Medicine 05/12/25
== END 2025-06-13 06:10 | disposition home or self-care (01) ==
PROVIDERS: PCP Emergency Medicine; Visit Provider Urology
DX: N21.0 Calculus in bladder (principal)
CPT/HCPCS: 87086